=== PATIENT | male | born 1990 | race Caucasian/White ===

== ENCOUNTER 2021-12-15 17:57 | Emergency (ER) | payer BC, SELFPAY ==
[2021-12-15 18:05] VITALS: BP 160/99; PULSE 106; RESP 18; TEMP 36.6; O2SAT 98
--- NOTE | 2021-12-15 18:16 | ED.MALEGU ---
HPI - Male Genitourinary General Chief complaint: Urogenital-Male Stated complaint: uti Time Seen by Provider: 12/15/21 18:16 Source: patient Mode of arrival: ambulatory Limitations: no limitations History of Present Illness HPI Narrative: 31-year-old male with history of high blood pressure, depression presents with complaint of urinary frequency, fatigue, dry mouth, dizziness for the past week. Patient states at work he feels like he can fall asleep, feels tired all the time. Patient reports that he had lab orders for several months that he decided to go get at the beginning of December. Patient states his PCP called him and told him his blood sugar was elevated, and prescribed Metformin. Patient has been taking Metformin but was unaware that he was supposed to cut back on his carbohydrate and sugar intake. Did not really know what it meant to be diabetic. Patient had appointment with his PCP on Sunday but missed it due to work. All systems reviewed and negative except as noted above Related Data Home Medications Medication Instructions Recorded Confirmed clonazepam 12/15/21 divalproex PO 12/15/21 escitalopram oxalate mg 12/15/21 lisinopril 12/15/21 metformin mg PO 12/15/21 olanzapine mg 12/15/21 olanzapine mg 12/15/21 Allergies Allergy/AdvReac Type Severity Reaction Status Date / Time No Known Allergies Allergy Unknown Verified 12/15/21 18:22 Review of Systems Review of Systems: CONSTITUTIONAL: Denies fever, chills, or sweats. Reports fatigue. EYES: Denies visual changes, redness, or discharge. ENT: Denies rhinorrhea, congestion, sore throat, or otalgia. Reports dry mouth. CARDIOVASCULAR: Denies chest pain, palpitations, or edema. RESPIRATORY: Denies cough or dyspnea. GASTROINTESTINAL: Denies abdominal pain, nausea, vomiting, or diarrhea. GENITOURINARY: Denies dysuria or hematuria. Increased urination. SKIN: Denies rash or itching. MUSCULOSKELETAL: Denies back pain, joint pain, or myalgia. NEUROLOGIC: Denies headache, numbness, or weakness. Reports dizziness. PSYCHIATRIC: Denies anxiety or depression. All other systems reviewed are negative, except as documented in HPI. [facility] Comments At time of signature, agree with nursing past medical, surgical, social and family history. There is no relevant family history pertinent to the presenting complaint. Exam Narrative: GENERAL: This is a well-nourished, well-developed patient, in no apparent distress. HEAD: normocephalic, atraumatic. EYES: PERRL. Sclera clear/white. Vision is grossly intact. EARS: External ears normal, auditory canals clear and without drainage, TMs normal without perforation. Hearing grossly intact. NOSE: External nose normal with no obvious nasal discharge, nares without redness, no rhinorrhea. THROAT: Mucous membranes moist, posterior pharynx clear. NECK: Neck supple, non-tender without lymphadenopathy, masses or thyromegaly. CARDIOVASCULAR: Tachycardic and normal rhythm without murmurs, gallops, or rubs. RESPIRATORY: Clear to auscultation. Breath sounds equal bilaterally. No wheezes, rales, or rhonchi. GASTROINTESTINAL: Abdomen soft, non-tender, nondistended. Bowel sounds are active. No hepato-splenomegaly, or palpable masses. No guarding. SKIN: warm, Dry, intact with no suspicious lesions or rash, good texture and turgor. NEURO: awake, alert, and oriented to person, place and time. There were no obvious focal neurologic abnormalities. EXTREMITIES: No joint tenderness, effusion, or edema noted. No calf tenderness. Negative Homans sign bilaterally. BACK: Nontender without deformity. No CVA tenderness. Course Course Level of Care: Express Care Visit Vital Signs Vital signs: Vital Signs Temperature 36.6 C 12/15/21 18:05 Pulse Rate 106 H 12/15/21 18:05 Respiratory Rate 18 12/15/21 18:05 Blood Pressure 160/99 H 12/15/21 18:05 Pulse Oximetry 98 12/15/21 18:05 Temperature 36.6 C 12/15/21 18:05 Pulse Rate 106 H 0
[2021-12-15 18:35] LABS: Glucose Point of Care 496 mg/dl (65-105)
== END 2021-12-15 18:48 | disposition short-term general hospital (02) ==
PROVIDERS: Emergency Provider Nurse Practitioner Family; PCP Nurse Practitioner Family
DX: E11.65 Type 2 diabetes mellitus with hyperglycemia (principal); I10 Essential (primary) hypertension
CPT/HCPCS: 81003; 82948; 87086; 99203; G0463

== ENCOUNTER 2022-08-22 09:51 | Emergency (ER) | payer SELFPAY ==
[2022-08-22 10:00] VITALS: BP 191/146; PULSE 87; RESP 20; TEMP 36.7; O2SAT 98
--- NOTE | 2022-08-22 10:36 | ED.MALEGU ---
HPI - Male Genitourinary General Chief complaint: Urogenital-Male Stated complaint: Urinary Problem Time Seen by Provider: 08/22/22 10:36 Source: patient and RN notes reviewed Mode of arrival: ambulatory Limitations: no limitations History of Present Illness HPI Narrative: 32-year-old male with history of uncontrolled diabetes mellitus type 2 presents with concern for urine frequency, intermittent groin pain, dark urine for 2 days. He denies abdominal pain, back pain, fever, body aches, chills, sweats. Denies testicular redness, swelling, tenderness, penile discharge. Denies concern for STDs. Complaint: other (Urine frequency) Related Data Home Medications Medication Instructions Recorded Confirmed lisinopril 30 mg tablet 30 mg DAILY 12/15/21 08/22/22 Allergies Allergy/AdvReac Type Severity Reaction Status Date / Time No Known Allergies Allergy Unknown Verified 08/22/22 10:16 Review of Systems Review of Systems: CONSTITUTIONAL: Denies malaise, chills, sweats, or fever. CARDIOVASCULAR: Denies chest pain, palpitations, or edema. RESPIRATORY: Denies cough or dyspnea. GASTROINTESTINAL: Denies abdominal pain, nausea, vomiting, diarrhea GENITOURINARY: Reports frequency, groin discomfort, foul-smelling urine. Denies urgency, suprapubic pressure. Denies flank pain or hematuria. SKIN: Denies rash or itching. MUSCULOSKELETAL: Denies back pain or myalgia. All systems reviewed & are unremarkable except as noted in HPI and below PMF[facility] Comments At time of signature, agree with nursing past medical, surgical, social and family history. There is no relevant family history pertinent to the presenting complaint Exam Narrative: GENERAL: Well-appearing, well-nourished, and in no acute distress. HEAD: Normocephalic. EYES: PERRLA, conjunctivae clear. NECK: Supple. No lymphadenopathy CHEST: Clear to auscultation. No respiratory distress. HEART: Regular rate and rhythm. ABDOMEN: Soft, nontender upon palpation, nondistended, normal active bowel sounds, no palpable or pulsatile masses, no guarding. No CVA tenderness SKIN: Warm, dry, no rash. NEURO: Alert and oriented x3. PSYCH: Normal mood and affect Course Course Emergency Course: Advised patient importance of following up with his primary care provider regarding his blood sugar and taking his medications as prescribed. Patient is aware of diagnosis, understands and agrees to treatment plan. Anticipatory guidance given. Patient agrees to follow-up as directed and is aware of reasons to seek care at the emergency department. Portions of this record may have been created with voice recognition software Level of Care: Express Care Visit Vital Signs Vital signs: Vital Signs Temperature 98.0 F 08/22/22 10:00 Pulse Rate 87 08/22/22 10:00 Respiratory Rate 20 08/22/22 10:00 Blood Pressure 191/146 H 08/22/22 10:00 Pulse Oximetry 98 08/22/22 10:00 Oxygen Delivery Room Air 08/22/22 10:00 Temperature 98.0 F 08/22/22 10:00 Pulse Rate 87 08/22/22 10:00 Respiratory Rate 20 08/22/22 10:00 Blood Pressure 191/146 H 08/22/22 10:00 Pulse Oximetry 98 08/22/22 10:00 Oxygen Delivery Room Air 08/22/22 10:00 Reviewed. MDM - Male Genitourinary MDM Narrative Medical decision making narrative: Exam findings show no acute concerns or changes; patient is non-toxic appearing and is in no distress. Patient is appropriate for outpatient treatment and follow-up. Differential Diagnosis Differential diagnosis: Likely urinary tract infection, urethritis, epididymitis, prostatitis and other (Hyperglycemia) Lab Data Labs: Urine Glucose 2+ Reference Range: Negative Urine Bilirubin Negative Reference Range: Negative Urine Ketone Trace Reference Range: Negativ
[2022-08-22 10:49] LABS: Glucose Point of Care 236 mg/dl (65-105)
== END 2022-08-22 11:10 | disposition home or self-care (01) ==
PROVIDERS: Emergency Provider Nurse Practitioner; PCP Nurse Practitioner Family
DX: R35.0 Frequency of micturition (principal); E11.9 Type 2 diabetes mellitus without complications
CPT/HCPCS: 81003; 82948; 87086; 99213; G0463

== ENCOUNTER 2022-11-18 14:05 | Emergency (ER) | payer SELFPAY ==
[2022-11-18 14:14] VITALS: BP 144/88; PULSE 87; RESP 20; TEMP 36.4; O2SAT 98
--- NOTE | 2022-11-18 14:16 | ED.EYEPROB ---
HPI - Eye Problem General Chief complaint: Eye Problems Stated complaint: FB left eye Time Seen by Provider: 11/18/22 14:16 History of Present Illness HPI Narrative: patient was working with wood today and felt like a piece of wood went into his left eye. Patient states he irrigated his eye copiously at home but still feels as if there is something in his left eye. Related Data Home Medications Medication Instructions Recorded Confirmed lisinopril 30 mg tablet 30 mg DAILY 12/15/21 11/18/22 Allergies Allergy/AdvReac Type Severity Reaction Status Date / Time No Known Allergies Allergy Unknown Verified 11/18/22 14:31 Review of Systems Review of Systems: CONSTITUTIONAL: Denies fever, chills, or sweats. EYES: Denies visual changes, redness, or discharge. ENT: Denies rhinorrhea, congestion, sore throat, or otalgia. CARDIOVASCULAR: Denies chest pain, palpitations, or edema. RESPIRATORY: Denies cough or dyspnea. GASTROINTESTINAL: Denies abdominal pain, nausea, vomiting, or diarrhea. GENITOURINARY: Denies dysuria or hematuria. SKIN: Denies rash or itching. MUSCULOSKELETAL: Denies back pain, joint pain, or myalgia. NEUROLOGIC: Denies headache, numbness, or weakness. PSYCHIATRIC: Denies anxiety or depression. PMF[facility] Comments At time of signature, agree with nursing past medical, surgical, social and family history. There is no relevant family history pertinent to the presenting complaint Exam Narrative: GENERAL: Well-appearing, well-nourished, and in no acute distress. HEAD: Normocephalic, atraumatic. EYES: PERRLA and EOMI. Corneal abrasion to left eyeGENERAL: Well-appearing, well-nourished, and in no acute distress. HEAD: Normocephalic, atraumatic. EYES: PERRLA and EOMI. ENT: Nares clear, no rhinorrhea or epistaxis. Mucous membranes moist. NECK: Supple. CHEST: Clear to auscultation. No respiratory distress. HEART: Regular rate and rhythm. No murmur heard. Normal peripheral pulses. ABDOMEN: Soft, nontender, nondistended, normal active bowel sounds. EXTREMITIES: Normal range of motion. No edema. SKIN: Warm, dry, no rash. NEURO: No focal deficits. Alert and oriented x3. Nikhil Coma Scale Eye Opening: Spontaneous 4 Nikhil Coma Scale Motor: Obeys Commands 6 Nikhil Coma Scale Verbal: Oriented 5 Nikhil Coma Scale Total 15 ENT: Nares clear, no rhinorrhea or epistaxis. Mucous membranes moist. NECK: Supple. CHEST: Clear to auscultation. No respiratory distress. HEART: Regular rate and rhythm. No murmur heard. Normal peripheral pulses. ABDOMEN: Soft, nontender, nondistended, normal active bowel sounds. EXTREMITIES: Normal range of motion. No edema. SKIN: Warm, dry, no rash. NEURO: No focal deficits. Alert and oriented x3. [place] Coma Scale Eye Opening: Spontaneous 4 Nikhil Coma Scale Motor: Obeys Commands 6 Nikhil Coma Scale Verbal: Oriented 5 Nikhil Coma Scale Total 15 Eyes: Other: corneal abrasion to 6 oclock left eye Course Course Level of Care: Express Care Visit Vital Signs Vital signs: Vital Signs Temperature 36.4 C 11/18/22 14:14 Pulse Rate 87 11/18/22 14:14 Respiratory Rate 20 11/18/22 14:14 Blood Pressure 144/88 H 11/18/22 14:14 Pulse Oximetry 98 11/18/22 14:14 Oxygen Delivery Room Air 11/18/22 14:14 Temperature 36.4 C 11/18/22 14:14 Pulse Rate 87 11/18/22 14:14 Respiratory Rate 20 11/18/22 14:14 Blood Pressure 144/88 H 11/18/22 14:14 Pulse Oximetry 98 11/18/22 14:14 Oxygen Delivery Room Air 11/18/22 14:14 Procedures FB Removal Eye Foreign Body #1: Location: eye (L) Topical anesthetic used: tetracaine Patient tolerated procedure: well Foreign Body Removal Narrative: left eye numbed and then stained viewed under joshi lamp no foreign body noted corneal abrasion to left eye Discharge Plan Discharge Clinical Impression: Corneal abrasion Instructions: Corneal Abrasion (DC) Additional Instructions: Foll
== END 2022-11-18 14:34 | disposition home or self-care (01) ==
LOC: EXPBETH 14:07
PROVIDERS: Emergency Provider Nurse Practitioner Family; PCP Nurse Practitioner Family
DX: S05.02XA Injury of conjunctiva and corneal abrasion without foreign body, left eye, initial encounter (principal); X58.XXXA Exposure to other specified factors, initial encounter; I10 Essential (primary) hypertension
CPT/HCPCS: 99213; A9270; G0463

== ENCOUNTER 2023-08-08 18:31 | Emergency (ER) | payer OTHER, SELFPAY ==
[2023-08-08 18:37] VITALS: BP 149/100; PULSE 94; RESP 20; TEMP 35.8; O2SAT 98
[2023-08-08 18:54] LABS: Glucose Point of Care 134 mg/dl (65-105)
--- NOTE | 2023-08-08 19:11 | ED.NAVMDI ---
HPI - Nausea/Vomiting/Diarrhea General Chief complaint: Nausea/Vomiting/Diarrhea Stated complaint: Fever/Vomiting/Diarrhea Time Seen by Provider: 08/08/23 18:56 Source: patient and RN notes reviewed Mode of arrival: ambulatory Limitations: no limitations History of Present Illness HPI Narrative: Patient presents today complaining of a 2 day history of nausea, vomiting, diarrhea, sweats, fever, congestion and rhinorrhea. States the fever resolved yesterday. Reports 2-3 episodes of vomiting per day. He is able to keep down fluids in between vomiting episodes, but is not able to keep down food. Reports 6 episodes of diarrhea per day and reports that it is water. Denies blood or mucus in the stool. Denies abdominal pain. He has tried Tylenol and various [id number] medications for his diarrhea without relief. Patient continues to put on normal urine. He is diabetic, and has not been checking his blood sugars. Related Data Home Medications Medication Instructions Recorded Confirmed empagliflozin 25 mg tablet 25 mg PO DAILY 08/08/23 08/08/23 (Jardiance) lisinopril 5 mg tablet 5 mg PO DAILY 08/08/23 08/08/23 Allergies Allergy/AdvReac Type Severity Reaction Status Date / Time No Known Allergies Allergy Unknown Verified 08/08/23 19:07 Review of Systems Review of Systems: CONSTITUTIONAL: Denies body aches, chills.+ fever, sweats EYES: Denies visual changes, redness, or discharge. ENT: Denies sore throat, or otalgia.+ congestion, rhinorrhea CARDIOVASCULAR: Denies chest pain, palpitations, or edema. RESPIRATORY: Denies cough or dyspnea. GASTROINTESTINAL: Denies abdominal pain.+ nausea, vomiting, diarrhea GENITOURINARY: Denies dysuria or hematuria. SKIN: Denies rash, itching, or wounds. MUSCULOSKELETAL: Denies back pain, joint pain, or myalgia. NEUROLOGIC: Denies headache, numbness, tingling, or weakness. PSYCH: Denies depression or anxiety. [facility] Comments At time of signature, I have reviewed and agree with nursing past medical, surgical, social and family history unless otherwise noted. Please see nursing chart for further information. There is no relevant family history pertinent to the presenting complaint Exam Narrative: GENERAL: Well-appearing, well-nourished, and in no acute distress. HEAD: Normocephalic, atraumatic. EYES: EOMI. No redness or drainage. Conjunctivae normal. ENT: Mucous membranes pink and moist. Nares clear. No rhinorrhea. TMs normal bilaterally. Throat normal. Uvula midline. NECK: Normal AROM. Supple. No lymphadenopathy. CHEST: No respiratory distress. Clear to auscultation. HEART: Regular rate and rhythm. No murmur appreciated. Normal peripheral pulses. ABDOMEN: Soft, nontender, nondistended, normal active bowel sounds. EXTREMITIES: Normal range of motion. No edema. SKIN: Warm, dry, no rash. Capillary refill normal. Normal skin turgor. NEURO: No focal deficits. Alert and oriented x3. Gait steady. PSYCH: Normal affect. No signs of depression or anxiety. Course Course Level of Care: Express Care Visit Vital Signs Vital signs: Vital Signs Temperature 96.4 F L 08/08/23 18:37 Pulse Rate 94 08/08/23 18:37 Respiratory Rate 20 08/08/23 18:37 Blood Pressure 149/100 H 08/08/23 18:37 Pulse Oximetry 98 08/08/23 18:37 Oxygen Delivery Room Air 08/08/23 18:37 Temperature 96.4 F L 08/08/23 18:37 Pulse Rate 94 08/08/23 18:37 Respiratory Rate 20 08/08/23 18:37 Blood Pressure 149/100 H 08/08/23 18:37 Pulse Oximetry 98 08/08/23 18:37 Oxygen Delivery Room Air 08/08/23 18:37 Reviewed MDM - Nausea/Vomiting/Diarrhea MDM Narrative Medical decision making narrative: Zofran given for nausea. Patient reports feeling slightly better after Zofran. Requests anti diarrheal prescription. Prescriptions for Zofran and Lomotil sent to pharmacy. Discussed follow-up with PCP. Anticipatory guidance given. Differential Diagnosis Differential dee
[2023-08-08] MEDS: ONDANSETRON HCL ODT 4 MG TABLET 8 MG SUBLINGUAL (19:12)
== END 2023-08-08 19:50 | disposition home or self-care (01) ==
PROVIDERS: Emergency Provider Nurse Practitioner; PCP Nurse Practitioner Family
DX: R11.2 Nausea with vomiting, unspecified (principal); R19.7 Diarrhea, unspecified
CPT/HCPCS: 82948; 87081; 87880; 99213; A9270; G0463

== ENCOUNTER 2023-08-11 18:42 | Emergency (ER) | payer OTHER, SELFPAY ==
[2023-08-11 18:57] VITALS: BP 167/106; PULSE 93; RESP 16; TEMP 36.6; O2SAT 97
--- NOTE | 2023-08-11 18:58 | ED.URI ---
HPI - URI/Sore Throat General Chief Complaint: Upper Respiratory Infection Stated Complaint: Congestion, Sore Throat, Eye Drainage History of Present Illness HPI Narrative: PATIENT PRESENTS WITH NASAL CONGESTION COUGH AND LEFT EYE MATTED SHUT THIS MORNING. PATIENT WAS TREATED 4 DAYS AGO WITH NAUSEA VOMITING DIARRHEA WHICH SYMPTOMS HAVE MUCH IMPROVED AND HE RETURNS TODAY WITH EYE PROBLEM AND A COUGH. NO SHORTNESS OF BREATH AND NO CHEST PAIN Related Data Home Medications Medication Instructions Recorded Confirmed empagliflozin 25 mg tablet 25 mg PO DAILY 08/08/23 08/08/23 (Jardiance) lisinopril 5 mg tablet 5 mg PO DAILY 08/08/23 08/08/23 Allergies Allergy/AdvReac Type Severity Reaction Status Date / Time No Known Allergies Allergy Unknown Verified 08/08/23 19:07 Review of Systems Review of Systems: CONSTITUTIONAL: DENIES CHILLS, OR SWEATS. REPORTS FEVER AND GENERALIZED BODY ACHES EYES: DENIES VISUAL CHANGES, REDNESS, OR DISCHARGE. ENT: DENIES OTALGIA. REPORTS NASAL CONGESTION RUNNY NOSE AND SORE THROAT CARDIOVASCULAR: DENIES CHEST PAIN, PALPITATIONS, OR EDEMA. RESPIRATORY: DENIES DYSPNEA. REPORTS OCCASIONAL COUGH GASTROINTESTINAL: DENIES ABDOMINAL PAIN, NAUSEA, VOMITING, OR DIARRHEA. GENITOURINARY: DENIES DYSURIA OR HEMATURIA. SKIN: DENIES RASH OR ITCHING. MUSCULOSKELETAL: DENIES BACK PAIN, JOINT PAIN, OR MYALGIA. REPORTS GENERALIZED BODY ACHES NEUROLOGIC: DENIES HEADACHE, NUMBNESS, OR WEAKNESS. PSYCHIATRIC: DENIES ANXIETY OR DEPRESSION. [facility] Comments AT TIME OF SIGNATURE, AGREE WITH NURSING PAST MEDICAL, SURGICAL, SOCIAL AND FAMILY HISTORY. THERE IS NO RELEVANT FAMILY HISTORY PERTINENT TO THE PRESENTING COMPLAINT Exam Narrative: THE PATIENT IS A WELL-DEVELOPED, WELL-NOURISHED IN NO ACUTE DISTRESS. SKIN: SKIN IS WARM AND DRY WITHOUT ERYTHEMA, SWELLING OR EXUDATE. THERE IS GOOD TURGOR. NO TENTING. HEAD: ATRAUMATIC. NORMOCEPHALIC. NO TEMPORAL OR SCALP TENDERNESS. EYES: MOIST AND BRIGHT. SCLERA AND CONJUNCTIVAE NORMAL. NO DISCHARGE. PERRLA. EXTRAOCULAR MOTIONS INTACT. GROSS VISUAL ACUITY INTACT. EARS: PINNA IS NORMAL SHAPE AND CONTOUR. CLEAR EXTERNAL AUDITORY CANALS. TM PEARLY HERNANDES WITH GOOD CONE OF LIGHT, NO ERYTHEMA OR SUPPURATION. BILATERAL CERUMEN NOTED NO GROSS HEARING DEFICIT. NOSE: PINK, MOIST MUCOSA WITH GOOD AIR MOVEMENT. CLEAR RHINORRHEA WITHOUT NASAL FLARING. SEPTUM MIDLINE. MOUTH: MOIST MUCOUS MEMBRANES. THROAT; MILD ERYTHEMA NOTED TO POSTERIOR OROPHARYNX WITH MODERATE POSTNASAL DRAINAGE. WITHOUT EXUDATE OR ULCERATION.. UVULA MIDLINE. NORMAL MOVEMENT OF SOFT PALATE. NECK: SUPPLE AND NONTENDER WITH FULL RANGE OF MOTION WITHOUT DISCOMFORT. NO MENINGEAL SIGNS. LUNGS: EQUAL AND BILATERAL BREATH SOUNDS WITHOUT WHEEZES, RALES OR RHONCHI. CHEST: THE CHEST WALL IS WITHOUT RETRACTIONS OR USE OF ACCESSORY MUSCLES. HEART: HAS A REGULAR RATE AND RHYTHM WITHOUT MURMUR, GALLOPS, CLICK OR RUB. ABDOMEN: SOFT, NONTENDER WITH POSITIVE ACTIVE BOWEL SOUNDS. NO REBOUND TENDERNESS. EXTREMITIES: WITHOUT CYANOSIS, CLUBBING OR EDEMA. EQUAL 2+ DISTAL PULSES AND 2 SECOND CAPILLARY REFILL NOTED. NEUROLOGIC: ALERT, ACTIVE, . THE PATIENT MOVES ALL EXTREMITIES WITH NORMAL MUSCLE STRENGTH. NORMAL MUSCLE TONE IS NOTED. NORMAL COORDINATION IS NOTED. NO FOCAL NEUROLOGICAL FINDINGS NOTED. Eyes: Conjunctivae: conjunctival abnormality left conjunctival injection Course Course Level of Care: Express Care Visit Discharge Plan Discharge Clinical Impression: Upper respiratory infection, [place] eye Patient Disposition: Home, Self-Care Condition: Stable Instructions: Antibiotic Form Additional Instructions: CONJUNCTIVITIS IS SPREAD BY [id number] CONTACT OR BY TOUCHING A CONTAMINATED SURFACE. YOU CAN USE ARTIFICIAL TEARS, COLD AND WARM COMPRESSES-USE, DIFFERENT COMPRESS FOR EACH EYE, AND INCREASE HYGIENE SUCH HAND-WASHING. DO NOT WEAR CONTACTS FOR 1 WEEK, IF APPLICABLE. DO NOT RETURN FOR 24 HOURS TO DAYCARE, SCHOOL, W
== END 2023-08-11 19:11 | disposition home or self-care (01) ==
PROVIDERS: Emergency Provider Nurse Practitioner Family
DX: J06.9 Acute upper respiratory infection, unspecified (principal); H10.022 Other mucopurulent conjunctivitis, left eye; I10 Essential (primary) hypertension
CPT/HCPCS: 99213; G0463

== ENCOUNTER 2023-08-13 08:39 | Emergency (ER) | payer OTHER, SELFPAY ==
[2023-08-13 08:46] VITALS: BP 147/95; PULSE 86; RESP 20; TEMP 37.1; O2SAT 96
--- NOTE | 2023-08-13 09:12 | ED.URI ---
HPI - URI/Sore Throat General Chief Complaint: Upper Respiratory Infection Stated Complaint: needs to be seen for work Time Seen by Provider: 08/13/23 09:13 Source: patient and RN notes reviewed Mode of arrival: ambulatory Limitations: no limitations History of Present Illness HPI Narrative: 33-year-old male presented for complaint of sore throat, headache, body aches, sinus pressure/congestion, right ear pain, n/v/d, fever/chills. States the vomiting and diarrhea is improving. Patient also reports the redness to the right eyes, for which he was seen 2 days ago, is worsening. Has been taking Ofloxacin drops as directed. Denies sob, wheezing or lethargy. Not taking anything else for symptoms. Denies sick contacts. MD elicited complaint: cough Related Data Home Medications Medication Instructions Recorded Confirmed empagliflozin 25 mg tablet 25 mg PO DAILY 08/08/23 08/13/23 (Jardiance) lisinopril 5 mg tablet 5 mg PO DAILY 08/08/23 08/13/23 Allergies Allergy/AdvReac Type Severity Reaction Status Date / Time No Known Allergies Allergy Unknown Verified 08/13/23 09:30 Review of Systems Review of Systems: CONSTITUTIONAL: Endorses malaise, chills, sweats, fever EYES: Denies visual changes, Endorses redness, or discharge ENT: Reports rhinorrhea, congestion, sinus pain, otalgia, sore throat CARDIOVASCULAR: Denies chest pain, palpitations, edema RESPIRATORY: Reports cough, post nasal drainage. Denies dyspnea GASTROINTESTINAL: Denies abdominal pain, Reports nausea, vomiting, diarrhea SKIN: Denies rash or itching MUSCULOSKELETAL: Endorses myalgia NEUROLOGIC: Endorses headache PMF Past Medical History Medical History (Updated 08/13/23 @ 09:59 by Sofi Morales APRN) No pertinent past medical history Exam Narrative: GENERAL: mildly Ill-appearing, nontoxic no acute distress. HEAD: Normocephalic EYES: PERRLA, EOMI. bilateral conjunctival injection, left worse than right, mild purulent drainage. Mild periorbital erythema Left worse than right. No FB. ENT: Mucous membranes moist. Left TM pearly giles with dull light reflex bilaterally; Right TM erythematous, bulging and intact, purulent effusion; canal not erythematous. No drainage; no tragal tenderness. Oropharynx erythematous without lesions or exudate, no drooling, no hoarseness, no trismus, uvula midline. No tripod positioning, muffled voice, soft palate or pharyngeal wall bulging NECK: Supple. No lymphadenopathy CHEST: Clear to auscultation, breath sounds equal. No wheezing, rhonchi, rales, or stridor. No respiratory distress, speaks in full sentences. HEART: Regular rate and rhythm. No murmur heard. SKIN: Warm, dry, no rash. NEURO: Alert and oriented x3. PSYCH: Normal mood and affect Course Course Emergency Course: Patient is aware of diagnosis, understands and agrees to treatment plan. Anticipatory guidance given. Patient agrees to follow-up as directed and is aware of reasons to seek care at the emergency department. Portions of this record may have been created with voice recognition software Level of Care: Express Care Visit Vital Signs Vital signs: Vital Signs Temperature 98.7 F 08/13/23 08:46 Pulse Rate 86 08/13/23 08:46 Respiratory Rate 20 08/13/23 08:46 Blood Pressure 147/95 H 08/13/23 08:46 Pulse Oximetry 96 08/13/23 08:46 Oxygen Delivery Room Air 08/13/23 08:46 Temperature 98.7 F 08/13/23 08:46 Pulse Rate 86 08/13/23 08:46 Respiratory Rate 20 08/13/23 08:46 Blood Pressure 147/95 H 08/13/23 08:46 Pulse Oximetry 96 08/13/23 08:46 Oxygen Delivery Room Air 08/13/23 08:46 reviewed MDM - URI/Sore Throat MDM Narrative Medical decision making narrative: Results of negative COVID, flu, strep reviewed with patient. Right AOM. Will change antibiotic eyedrop as pt reports symptoms are worsening Discussed physical exam findings and Rx's. Advised supportive measures and signs/symptoms to stanislaw
== END 2023-08-13 10:09 | disposition home or self-care (01) ==
PROVIDERS: Emergency Provider Nurse Practitioner Family; PCP Nurse Practitioner Family
DX: H66.91 Otitis media, unspecified, right ear (principal); H10.9 Unspecified conjunctivitis; Z20.822 Contact with and (suspected) exposure to COVID-19
CPT/HCPCS: 87081; 87426; 87804; 87880; 99213; C9803; G0463

== ENCOUNTER 2024-02-12 12:58 | Emergency (ER) | payer OTHER, SELFPAY ==
[2024-02-12 13:04] VITALS: BP 171/101; PULSE 96; RESP 16; TEMP 37.1; O2SAT 98
[2024-02-12 13:16] LABS: Glucose Point of Care 181 mg/dl (65-105)
[2024-02-12] MEDS: FAMOTIDINE 20 MG TABLET PO (13:26)
[2024-02-12] MEDS: ONDANSETRON HCL ODT 4 MG TABLET PO (13:26)
--- NOTE | 2024-02-12 13:39 | ED.GENADULT ---
HPI - General Adult General Chief complaint: Nausea/Vomiting/Diarrhea Stated complaint: Vomiting and Diarrhea Source: patient Mode of arrival: ambulatory Limitations: no limitations History of Present Illness HPI narrative: Patient presents for evaluation of nausea, vomiting, diarrhea. Symptom onset around midnight last night. He has also experienced hot flashes, headache, generalized body aches and chills. He reports a rumbling in the stomach yesterday preceding the other symptoms. He denies any abdominal pain per se. No recent sick contacts to his knowledge. No new foods. No recent alcohol intake. He has not taken any medication to assist with the symptoms. Denies any cough, otalgia or other infectious symptoms. He is currently prescribed metformin for diabetes and lisinopril for his blood pressure. Blood pressure is elevated today but denies any chest pain or shortness of breath. He ran out of metformin about a week ago. His is currently in wrote to pick it up from the pharmacy. Related Data Home Medications Medication Instructions Recorded Confirmed empagliflozin 25 mg tablet 25 mg PO DAILY 08/08/23 02/12/24 (Jardiance) lisinopril 5 mg tablet 5 mg PO DAILY 08/08/23 02/12/24 Allergies Allergy/AdvReac Type Severity Reaction Status Date / Time No Known Allergies Allergy Unknown Verified 02/12/24 13:19 Review of Systems Review of Systems: CONSTITUTIONAL: Reports hot flashes and chills EYES: Denies visual changes, redness, or discharge. ENT: Denies rhinorrhea, congestion, sore throat, or otalgia. CARDIOVASCULAR: Denies chest pain, palpitations, or edema. RESPIRATORY: Denies cough or dyspnea. GASTROINTESTINAL: Reports nausea, vomiting and diarrhea. Denies abdominal pain GENITOURINARY: Denies dysuria or hematuria. SKIN: Denies rash or itching. MUSCULOSKELETAL: Reports generalized body aches NEUROLOGIC: Denies headache, numbness, dizziness, or weakness. PSYCHIATRIC: Denies anxiety or depression. [facility] Past Medical History Medical History Diabetes Diarrhea Hypertension No pertinent past medical history Surgical History Surgical History No pertinent past surgical history Family History Family History (Updated 02/12/24 @ 14:04 by Karl White, AMMONIA BOX OPERATOR, ) Mother Family history non-contributory Social History Social History Living arrangements: with family Gender identity (if verbalized by the patient): Male Exam Narrative: GENERAL: Well-appearing, well-nourished, and in no acute distress. HEAD: Normocephalic, atraumatic. EYES: PERRLA and EOMI. ENT: Nares clear, no rhinorrhea or epistaxis. Mucous membranes moist. Oropharynx without tonsillar hypertrophy exudate or other lesions. Bilateral TMs pearly giles nonbulging NECK: Supple. No adenopathy or masses. No carotid bruits or JVD CHEST: Clear to auscultation. No respiratory distress. No wheezes rales or rhonchi HEART: Regular rate and rhythm. No murmur heard. Normal peripheral pulses. ABDOMEN: Soft, nontender, nondistended, normal active bowel sounds. EXTREMITIES: Normal range of motion. No edema. SKIN: Warm, dry, no rash. NEURO: No focal deficits. Alert and oriented x3. PSYCH: Normal mood and affect. Course Course Emergency Course: This is a 34-year-old male who presented for evaluation nausea, vomiting, diarrhea. He has no abdominal tenderness to suggest colitis or bowel obstruction. His COVID and influenza were negative. His exam is consistent with acute viral syndrome. Will discharge with Zofran and Lomotil. He was given Zofran and Pepcid while here. He should follow-up with his primary provider. He should restart his metformin. Go to the emergency department for worsening symptoms. Patient in agreement with plan care. Level
== END 2024-02-12 14:01 | disposition home or self-care (01) ==
PROVIDERS: Emergency Provider Nurse Practitioner; PCP Nurse Practitioner Family
DX: R11.2 Nausea with vomiting, unspecified (principal); R19.7 Diarrhea, unspecified; E11.9 Type 2 diabetes mellitus without complications; I10 Essential (primary) hypertension; Z20.822 Contact with and (suspected) exposure to COVID-19
CPT/HCPCS: 82948; 87426; 87804; 99213; A9270; G0463

== ENCOUNTER 2024-03-18 16:35 | Emergency (ER) | payer OTHER, SELFPAY ==
[2024-03-18 16:44] VITALS: BP 150/108; PULSE 94; RESP 20; TEMP 37.2; O2SAT 100
--- NOTE | 2024-03-18 17:03 | ED.URI ---
HPI - URI/Sore Throat General Chief Complaint: Upper Respiratory Infection Stated Complaint: nausea/fever/exposure to covid Time Seen by Provider: 03/18/24 17:03 Source: patient, RN notes reviewed and old records reviewed Mode of arrival: ambulatory Limitations: no limitations History of Present Illness HPI Narrative: 34-year-old male to [facility] for complaint body aches, diarrhea, nasal congestion, nasal drainage increased swelling for 2 days. Patient endorses recent COVID exposure. Patient denies fever, nausea, vomiting, urinary changes, ear pain, sore throat, allergies, pertinent medical history, shortness of breath, chest pain. Respirations even and nonlabored. Patient able to speak in full sentences without difficulty. Patient able to tolerate fluids by mouth. Patient in no acute distress. Related Data Home Medications Medication Instructions Recorded Confirmed empagliflozin 25 mg tablet 25 mg PO DAILY 08/08/23 03/18/24 (Jardiance) lisinopril 5 mg tablet 5 mg PO DAILY 08/08/23 03/18/24 meloxicam 7.5 mg tablet 7.5 mg PO DAILY 03/18/24 03/18/24 Allergies Allergy/AdvReac Type Severity Reaction Status Date / Time No Known Allergies Allergy Unknown Verified 03/18/24 17:15 Review of Systems Review of Systems: All systems reviewed & are unremarkable except as noted in HPI and below Constitutional: Constitutional: Reports as per HPI, Reports body ache(s), Reports chills and Reports excessive sweating Eyes: Eyes: Reports no additional eye complaints ENT: Reports as per HPI, Reports nasal congestion and Reports nasal discharge Cardiovascular: Cardiovascular: Reports no additional cardiovascular complaints, Denies chest pain and Denies dyspnea Respiratory: Respiratory: Reports no additional respiratory complaints, Denies cough and Denies dyspnea Gastrointestinal: Gastrointestinal: Reports diarrhea Musculoskeletal: Musculoskeletal: Reports no additional musculoskeletal complaints Neurologic: Reports system reviewed and no additional complaints, except as documented Psychiatric: Psychiatric: Reports no additional psychiatric complaints PMF Past Medical History Medical History Diabetes Diarrhea Hypertension No pertinent past medical history Surgical History Surgical History No pertinent past surgical history Family History Family History Mother Family history non-contributory Social History Social History Living arrangements: with family Gender identity (if verbalized by the patient): Male Comments At the time of my signature, I reviewed and agree with the nursing past medical, surgical, social, and family history. There is no relevant family history pertinent to the patient complaint. Exam Const: General: cooperative, no acute distress, alert, ill appearing acutely, tired appearing, uncomfortable and well nourished Nutritional Appearance: well nourished Orientation/consciousness: patient oriented x3 Limitations: no limitations HENMT: Head: normal to inspection Ears: external ears normal Face/Nose/Sinus: Normal external nose present, Abnormal mucous membranes and turbinates present boggy and erythematous, normal facial exam, No erythema and No edema Face and sinus: normal facial exam, no erythema and no edema Mouth: Yes Normal oral and palatal mucosa present Throat: postnasal drainage Eyes: General: appearance normal, both eyes and all related structures Neck: Neck: normal visual inspection, full ROM and no meningeal signs Lymphatic: no lymphadenopathy noted and no lymphedema noted Chest: Chest palpation & inspection: normal inspection of the chest Resp: Effort & Inspection: normal respiratory effort and able to speak in complete sentenc
== END 2024-03-18 17:45 | disposition home or self-care (01) ==
PROVIDERS: Emergency Provider Nurse Practitioner Family; PCP Nurse Practitioner Family
DX: B34.9 Viral infection, unspecified (principal); Z20.822 Contact with and (suspected) exposure to COVID-19; E11.9 Type 2 diabetes mellitus without complications; Z79.84 Long term (current) use of oral hypoglycemic drugs; I10 Essential (primary) hypertension
CPT/HCPCS: 87081; 87426; 87804; 87880; 99213; G0463

== ENCOUNTER 2024-12-12 09:08 | Emergency (ER) | payer OTHER, SELFPAY ==
[2024-12-12 09:16] VITALS: BP 154/103; PULSE 122; RESP 16; TEMP 36.3; O2SAT 98
--- OUTSIDE RECORDS SUMMARY | 2024-12-12 09:31 | XMS_ITS | Clinical Summary ---
Author Organization [facility] Address [address] [place] [address] Phone Care Team Providers Care Hydrometallurgical Engineer Name Role Phone LoeraJessica APRN, [employer] DERRICKMAN [employer] RIGGER Primary Care Provider Marleen Reed APRN, FLOOR INSTALLATION MECHANIC Unavailable [phone] Allergies Active Allergy Reactions Criticality Noted Date Comments Metformin Other (see Comments) Medium 03/28/2023 Feet cramps Medications Blood Glucose Monitoring Suppl Device Diagnosis: Diabetes type 2 Blood testing frequency: 3 times a day 1 Each 4 Active Lancets Misc Use as directed 200 Lancet . 2 4 Active Glucose Blood Strip Diagnosis: Diabetes type 2 Blood testing frequency: 3 times a day 200 Strip 2 4 Active lamoTRIgine (LaMICtal) 25 MG Tablet Take 25 mg by mouth daily. Active insulin glargine (LANTUS, BASAGLAR) 100 UNIT/ML Solution Pen-injector 10 Units by Subcutaneous route. 4 01/21/20 25 Active Active Problems Problem Noted Date Diagnosed Date Vision changes 05/26/2024 Uncontrolled type 2 DM with hyperosmolar nonketotic hyperglycemia 05/26/2024 Obesity (BMI 30-39.9) 05/26/2024 Polycythemia 05/26/2024 HTN (hypertension) 05/26/2024 HLD (hyperlipidemia) 05/26/2024 Resolved Problems Problem Noted Date Diagnosed Date Resolved Date CVA (cerebral vascular accident) 05/26/2024 05/27/2024 Encounters Date Type Department Care Team Description 10/03/2024 Documentation Only [facility] [address] [place] [address] Helena Marques OT from Last 3 Months Family History Medical History Relation Name Comments Diabetes Father Heart Attack Father Hypertension Father Stroke Father Crohn's Disease Mother Relation Name Status Comments Father Alive Mother Alive Social History Tobacco Use Types Packs/Day Years Used Date Smoking Tobacco: Never Passive Smoke Exposure: Never Smokeless Tobacco: Never Tobacco Cessation:Counseling Given: Not Answered Alcohol Use Standard Drinks/Week Comments Not Currently 0 (1 standard drink = 0.6 oz pur e alcohol) [facility] Utilities Answer Date Recorded In the past 12 months has th e electric, gas, oil, or water company threatened to shut off services in your home? No 05/26/2024 Hunger Vital Sign Answer Date Recorded Within the past 12 months, y ou worried that your food would run out before you got the money to buy more. Never true 05/26/20 24 Within the past 12 months, t he food you bought just didn't last and you didn't have money to get more. Never true 05/26/2024 PRAPARE - Transportation Answer Date Re corded In the past 12 months, has l ack of transportation kept you from medical appointments or from getting medications? No 05/08 In the past 12 months, has l ack of transportation kept you from meetings, work, or from getting things needed for daily living? No 05/26/2024 Housing Stability Vital Sign Answer Dennis e Recorded In the last 12 months, was t here a time when you were not able to pay the mortgage or rent on time? No 05/26/2024 In the past 12 months, how m any times have you moved where you were living? 1 05/26/2024 At any time in the past 12 m [facility], were you homeless or living in a halfway (including now)? No 05/26/2024 Sex and Gender Information Value Date Recorded Sex Assigned at Not on file Legal Sex Male 8:02 PM CDT Gender Identity Not on file Sexual Orientation Not on file Last Filed Vital Signs Vital Sign Reading Time Taken Comments Blood Pressure 144/96 07/29/2024 9:00 AM CDT Pulse 87 07/29/2024 9:00 AM CDT Temperature 36.3 C (97.4 F) 07/29/2024 9:00 AM CDT Respiratory Rate 17 07/29/2024 9:00 AM CDT Oxygen Saturation 98% 07/29/2024 9:00 AM CDT Inhaled Oxygen Concentration - - Weight 111.3 kg (245 lb 6.4 oz) 07/29/2024 9:00 AM CDT Height 172.7 cm (5' 8 ) 07/29/2024 9:00 AM CDT Body Mass Index 37.31 07/29/2024 9:00 AM CDT Plan of Treatment Health Maintenance Due Date Last Done Comments Diabetes: Eye Exam 1989 Diabetes: Foot Exam 1989 Hepatitis C Virus (HCV) Screening 1989 Hepatitis B Immunization (1 of 3 - 19+ 3-dose series) 01/21/2008 Pneumococcal Immunization Combined (1 of 2 - PCV) 01/21/2008 Influenza Immunization (#1) 06/08/202412/06, 07/18/2019 SARS-COV-2 Immunization ( season) 2024 Diabetes: Hemoglobin A1c 11/26/2024 024, 07/10/2023 Diabetes: Nephropathy Screening 05/27/2025 05/27/2024, 09/18/2023, 03/06/2023 Respiratory Syncytial Virus (RSV) Immunization (Adult) (1 - 1-dose 75+ series) 01/21/2064 DTaP/Tdap/Td Immunization Discontinued 01/06/2021 TdaP Immunization Completed 01/06/2021 Meningococcal Immunization (ACWY) Aged Out No longer eligible based on patient's age to complete this topic Rotavirus Immunization Aged Out No lo nger eligible based on patient's age to complete this topic Procedures Procedure Name Priority Date/Time Associated Diagnosis Comments CMP (COMPREHENSIVE METABOLIC PANEL) Routine 05/27/2024 4:07 AM CDT HEMOGLOBIN A1C W/ ESTIMATED GLUCOSE Routine 05/26/2024 9:20 AM CDT from Last 3 Months or Most Recently Relevant to Health Maintenance Results * (ABNORMAL) CMP (Comprehensive Metabolic Panel) (05/27/2024 4:07 AM CDT) SODIUM 136 136 - 145 mmol/L 05/27/2024 5:08 AM CDT [facility] POTASSIUM 3.6 3.5 - 5.1 mmol/L 05/27/2024 5:08 AM CDT [facility] CHLORIDE 102 98 - 107 mmol/L 05/27/2024 5:08 AM CDT [facility] CO2, VENOUS 24 22 - 30 mmol/L 05/27/2024 5:08 AM CDT [facility] ANION GAP 13.6 <18.0 mmol/L 05/27/2024 5:08 AM CDT [facility] GLUCOSE 258(H) 70 - 99 mg/dL 05/27/2024 5:08 AM CDT [facility] BUN 18 9 - 21 mg/dL 05/27/2024 5:08 AM CDT [facility] CREATININE, BLOOD 0.86 0.70 - 1.30 mg/dL 05/27/2024 5:08 AM CDT [facility] BUN/CREATININE RATIO 21(H) 12 - 20 ratio 05/27/2024 5:08 AM CDT [facility] TOTAL PROTEIN 6.7 6.3 - 8.2 g/dL 05/27/2024 5:08 AM CDT [facility] ALBUMIN 4.3 3.5 - 5.0 g/dL 05/27/2024 5:08 AM CDT [facility] A/G RATIO 1.8 1.0 - 2.2 05/27/2024 5:08 AM CDT [facility] CALCIUM 9.4 8.7 - 10.5 mg/dL 05/27/2024 5:08 AM CDT [facility] T BILI 1.0 0.2 - 1.2 mg/dL 05/27/2024 5:08 AM CDT [facility] SGOT (AST) 28 5 - 34 U/L 05/27/2024 5:08 AM CDT [facility] SGPT (ALT) 65(H) 0 - 55 U/L 05/27/2024 5:08 AM CDT [facility] ALKALINE PHOSPHATASE 78 40 - 150 U/L 05/27/2024 5:08 AM CDT [facility] GFR, ESTIMATED >60 >=60 05/27/2024 5:08 AM CDT [facility] Comment: Creatinine Clearance is the preferred criteria for selecting drug dose adjustments in renally impaired patients. The GFR is provided as additional pertinent clinical information. GFR is reported in mL/min/1.73 sq m. Calculation based on the Chronic Kidney Disease Epidemiology Collaboration (CKD- EPI) equation refit without adjustment for race. GFR, EST. >60 >=60 024 5:08 AM CDT [facility] GFR, EST. NONAFRICAN >60 >=60 05/27/2024 5:08 AM CDT [facility] Blood Venipuncture / Unknown 05/27/2024 4:07 AM CDT 05/27/2024 4:42 AM CDT us Merlyn Leo APRN, TAMARA CHEMISTRY ORDERABLES Final Result [facility] [address] [place] [address] * (ABNORMAL) Hemoglobin A1C w/ Estimated Glucose (05/26/2024 9:20 AM CDT) HGB-A1C 10.2(H) 4.0 - 6.0 % 05/26/2024 1:30 PM CDT [facility] Est Average Glucose 246.0 mg/dL 05/26/2024 1:30 PM CDT [facility] Blood Venipuncture / Unknown 05/26/2024 9:20 AM CDT 05/26/2024 9:39 AM CDT Narrative 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 PRE-ARREST: Use entire range of life support measures to stabilize the patient. Care Teams Hydrometallurgical Engineer Relationship Specialty Start Date End Date Jessica Loera APRN, [employer] RIGGER [address] [place] [address] [place] [id number] PCP - General Advanced Practice Nurse 09/18/23 Marleen Reed APRN, FLOOR INSTALLATION MECHANIC [address] [place] [address] Nurse Practitioner Advanced Practice Nurse 06/04/24
--- OUTSIDE RECORDS SUMMARY | 2024-12-12 09:31 | XMS_ITS | CONTINUITY OF CARE DOCUMENT ---
Author Name emily diaz Address Unknown Organization [facility] Address [address] [place] [address] Phone [phone] Care Team Providers Care Washing Machine Assembler Name Role Phone Bianca Thmoas MD Unavailable [phone] SAMIR HERNANDEZ MD Unavailable SAMIR HERNANDEZ MD Unavailable [phone] PROBLEMS Condition Status Date Provider Notes Family History of Hypertension: active ? Amparo Thomas MD Family History Coronary Hear t Disease male < 55: active ? Bianca Thomas MD Family History of CVA or Stroke: active ? Tomas Thomas MD Family History of Hyperlipidemia: active ? Sa lucy Thomas MD Family History of Hypertension: active ? Amparo Thomas MD Hypertension active ? Bianca Thomas MD ENCOUNTERS Date Type Provider Location Encounter Diagnosis - In-person encounter Office Visit Bianca Thomas MD [facility] Family History of Hypertension:Famil y History Coronary Heart Disease male < 55:Family History of CVA or Stroke:Family History of Hyperlipidemia:Fam mehran History of Hypertension:Hyper tension VITAL SIGNS Date Observation Value Provider Body Mass Index (Ratio) 35.14 kg/m2 Chairez i Alice blood pressure, diastolic 98 mm[Hg] Felipe rri Alice blood pressure, systolic 132 mm[Hg] lOiva ri Alice pulse rate 94 /min Ivette Hebert lder oxygen saturation, oximetry 98 % Ivette Jenkins respiratory rate E&M 16 /min Ivette G sandro weight E&M 238 [lb_av] Ivette Hebert lder height E&M 69 [in_i] Ivette Bourgeoisjaren cook ALLERGIES No Known Drug Allergies HISTORY OF MEDICATION USE Medication Status Instructions Dates Provider Indications Com ments LISINOPRIL 10 MG ORAL TABLET active take one pill a day 4 Ivette Jenkins SOCIAL HISTORY Date Observation Value Provider social history reviewed E&M revi ewed - no changes required Bianca Thomas MD alcohol use, average drinks per day social Ivette Jenkins alcohol use yes Ivette Anup troncosoer smoking status Never smoker Ivette olivera FAMILY HISTORY Family Member Condition Father Family History of Co ngestive Heart Failure: Father Family History of Hy pertension: Father Family History of Hy perlipidemia: Father Family History of Di abetes: Father Family History of CV A or Stroke: Father Family History Coron mari Heart Disease male < 55: Mother Family History of Hy pertension: INSURANCE PROVIDERS Payer name Policy type / Coverage type [place] [employer] [place] Medicaid [id number] TREATMENT PLAN Date Name Performer New Patient : H is updated medication list for this problem includes: Lisinopril 10 Mg Oral Tabs (Lisinopril) ..... Take one pill a day Orders: A mbulatory BP (CPT-70052) C omplete Echo (CPT-59485) C arotid Duplex Bilateral (CPT-24161) R enal Artery Duplex (CPT-36815) S leep Study (*) Bianca Thomas MD Date Name Sleep Study Renal Artery Duplex Carotid Duplex Bilat eral Complete Echo HISTORY OF PROCEDURES Procedure Date Procedure Name Provider Procedure Notes S tatus Ambulatory BP Bianca Thomas MD co mpleted EKG Bianca Thomas MD compl eted
--- OUTSIDE RECORDS SUMMARY | 2024-12-12 09:31 | XMS_ITS | Clinical Summary ---
Author Organization [facility] Address [address] [place] [address] Care Team Providers Care Lumber Straightener Name Role Phone José Manuel Werner MD Unavailable [phone] Leandro Slater MD Primary Care Provider + Allergies No known active allergies Medications blood-glucose meter kitIndications:Type 2 diabetes mellitus with hyperglycemia, with long-term current use of insulin ([facility]) 1 Device daily 1 kit 03/08/20 23 Active blood glucose diagnostic stripIndications:Ty pe 2 diabetes mellitus with hyperglycemia, with long-term current use of insulin ([facility]) Use one strip to monitor home blood sugars daily. 100 each 04/30/20 23 Active lancets 31 gauge miscIndications:Typ e 2 diabetes mellitus with hyperglycemia, with long-term current use of insulin ([facility]) 1 Device daily 100 each 04/30/20 23 Active blood-glucose meter,continuous ([employer] G7 Claims Support Specialist) misc Use as directed. 1 each 06/02/20 24 Active Additional Information Patient not taking.Reported on 10/29/2024 lamoTRIgine XR (LaMICtal XR) 50 mg tablet extended release 24hr Take 1 tablet (50 mg total) by mouth daily 30 tablet 1 07/17/20 24 Active pen needle, diabetic (Pen Needle) 32 gauge x 5/32 needleIndications:T ype 2 diabetes mellitus with hyperglycemia, with long-term current use of insulin ([facility]) Use as directed once a day. 100 each 07/23/20 24 Active glipiZIDE (GLUCOTROL) 5 mg tabletIndications:T ype 2 diabetes mellitus with hyperglycemia, with long-term current use of insulin ([facility]) Take 1 tablet (5 mg total) by mouth 2 (two) times a day before breakfast and lunch 180 tablet 09/23/20 24 Active metFORMIN XR (GLUCOPHAGE XR) 500 mg 24 hr tablet Take 4 tablets (2,000 mg total) by mouth daily with breakfast 120 tablet 10/23/19 Active insulin glargine 100 unit/mL (3 mL) pen for injection Inject 18 Units under the skin daily 5 mL 10/23/19 Active blood-glucose sensor (Alter [address] G7 Sensor) device Use as directed. Change sensor every 10 days. 3 each 10/23/19 Active Additional Information Patient not taking.Reported on 10/29/2024 aspirin 81 mg enteric coated tabletIndications:H emiparesis affecting left side as late effect of cerebrovascular accident (CVA) ([facility]) Take 1 tablet (81 mg total) by mouth daily 30 tablet 10/29/19 026 Active atorvastatin (LIPITOR) 40 mg tabletIndications:H emiparesis affecting left side as late effect of cerebrovascular accident (CVA) ([facility]) Take 1 tablet (40 mg total) by mouth daily 90 tablet 10/29/19 25 025 Active clopidogreL (PLAVIX) 75 mg tabletIndications:H emiparesis affecting left side as late effect of cerebrovascular accident (CVA) ([facility]) Take 1 tablet (75 mg total) by mouth daily For 21 days 30 tablet 10/29/19 25 025 Active lisinopriL (PRINIVIL,ZESTRIL) 20 mg tabletIndications:T ype 2 diabetes mellitus with hyperglycemia, with long-term current use of insulin ([facility]),Primary hypertension Take 1 tablet (20 mg total) by mouth daily 90 tablet 10/29/19 25 026 Active omeprazole (PriLOSEC) 40 mg capsuleIndications: Gastroesophageal reflux disease without esophagitis Take 1 capsule (40 mg total) by mouth daily 90 capsule 10/29/19 25 01/22/2 026 Active sertraline (ZOLOFT) 100 mg tabletIndications:D epression, recurrent Take 1 tablet (100 mg total) by mouth daily 90 tablet 10/29/19 25 026 Active dulaglutide (TRULICITY) 0.75 mg/0.5 mL pen injector Inject 0.5 mL (0.75 mg total) under the skin every 7 days 2 mL 6 10/31/19 25 Active ondansetron ODT (ZOFRAN-ODT) 4 mg disintegrating tablet Take 1 tablet (4 mg total) by mouth every 8 (eight) hours as needed for nausea or vomiting 20 tablet 11/04/19 25 Active Active Problems Problem Noted Date Diagnosed Date Depression, recurrent 10/29/2024 Assessment & Plan (10/29/2024 3:24 PM SPECIAL MACHINE OPERATOR): Chronic, stable, increased anxiety and agitation. Patient has been off his medication for 3 months due to changing his primary care. No changes from established baseline, no red flag symptoms reported. Meds: Lamotrigine 50 mg daily, sertraline 100 mg Not following with psychiatry or therapist Changes today restart lamotrigine and sertraline at same dose Advised patient to establish care with therapist: Handout provided Referral for Psychiatry Class 3 severe obesity due t o excess calories with serious comorbidity and body mass index (BMI) of 40.0 to 44.9 in adult 10/23/2024 Assessment & Plan (10/29/2024 3:35 PM SPECIAL MACHINE OPERATOR): Body mass index is 40.1 kg/m . CLASSIFICATION Class 3 obesity (severe obesity): 40 or greater Wt Readings from Last 3 Encounters: 10/29/24 116.1 kg (256 lb) 10/23/24 114.1 kg (251 lb 8 oz) 06/25/24 112.2 kg (247 lb 6.4 oz) - Etiology: Stagnant lifestyle and diet, exercise is limited due to patient previously having stroke. - Meds Mounjaro 2.5 mg weekly and tolerating Plan - Continue Mounjaro 2.5 mg weekly and titrate up as tolerated - Encouraged pt to continue with lifestyle modification: Diet/exercise, food tracking apps, diary to reflect on relationship with food. - Have educated patient that Mediterranean diet is widely accepted as the most balanced diet for both weight loss and sustained weight loss. Handout given. - Education given on risk associated with elevated BMI - Labs: CBC, CMP, TSH, A1c, lipids as needed to rule out medical causes. - BMI Follow-up includes: nutrition counseling, exercise counseling, and education provided. Hemiparesis affecting left s shamar as late effect of cerebrovascular accident (CVA) 06/29/2024 Assessment & Plan (10/29/2024 3:21 PM SPECIAL MACHINE OPERATOR): CVA 3m ago treated [facility] Symptoms: Talking, L side strength upprand lower. These have improved. Just started to go back to work and is hard. Recent work incident. Meds: ASA, statin. Following with neuro whom is managing Vision changes 07/10/2023 Assessment & Plan (06/29/2024 5:52 PM CDT): Referral to ophthalmology Assessment & Plan (07/10/2023 4:51 AM CDT): Acute problem-this is a new problem an onset-this is more likely related to uncontrolled blood pressure and blood sugars Patient encouraged to get an appointment with [facility]oker to have a regular dilated eye exam-patient educated on how his diabetes and his high blood pressure can affect his vision within the microvascular system and is highly encouraged to have annual eye exams Follow-up with PCP as scheduled sooner p.r.n. Migraine without aura and wi thout status migrainosus, not intractable 04/30/2023 Assessment & Plan (04/30/2023 7:14 PM CDT): Acute on chronic problem-onset last 3 weeks with worsening he has had issues with his insomnia and chest pain. Will trial sumatriptan 50 mg-take 1 tablet at the onset of migraine headache, may repeat x1 dose after 2 hours if headache is not resolved Stay hydrated, encouraged to drink plenty of water Encouraged to monitor his blood pressure-patient informed that elevated blood pressure readings that are not controlled can also cause migraine headaches Work note completed for patient Annual physical exam 04/08/2023 Assessment & Plan (10/29/2024 3:20 PM SPECIAL MACHINE OPERATOR): Pt presents for Annual Health exam: Today patient is: stable - Have discussed sig PMH, Current meds/treatments, labs, images/test, and changes made by specialists if following. - ADL's, SDoH, and Safety discussed. - Education on lifestyle modification diet, exercise, wellness with handouts given as appropriate. - Age-appropriate and annual Vaccinations discussed. - Age approximate cancer screening discussed and referrals sent. - Pt has requested STI screening: No - Cessation/avoidance counseling on Tobacco/Vape/MJ/ETOH/Drugs and the health risks associated with use and benefits of quitting or never starting. - Basic screening labs today: CBC w/o dif , CMP , Lipid [facility], A1c, and TSH - Will continue will annual exam. Assessment & Plan (04/08/2023 1:06 PM CDT): Patient and I discussed the folllowing: -Healthy, low fat diet. Avoiding junk food/fast food. -30 minutes of exercise most days of the week. Increase to 45 minutes for weight loss. -Influenza vaccine every year -F/u in 1 year for Annual PE or sooner if needed Neuropathy 04/02/2023 Assessment & Plan (07/10/2023 4:54 AM CDT): Chronic problem-poorly controlled with current regimen Increase gabapentin to 600 mg b.i.d. Ordered gabapentin 300 mg-take 2 capsules b.i.d. for neuropathy pain Continue to monitor Assessment & Plan (04/30/2023 7:02 PM CDT): Chronic problem-improving Patient had not increased his gabapentin to 300 mg b.i.d. after 7 days as directed, states he was only taking daily Refills sent for gabapentin 300 mg b.i.d.-patient encouraged to take as directed to help with neuropathic pain while he is sleeping, this may help him rest better in decreasing insomnia event Continue to monitor Assessment & Plan (04/08/2023 1:01 PM CDT): Improved. Gabapentin has been helpful for his bilateral feet pain. Will continue gabapentin 300 mg at bedtime Assessment & Plan (04/02/2023 8:28 AM CDT): Bilateral feet. I would like to try gabapentin 300 mg at bedtime. I discussed titrating dose upward of 1 capsule 3 times a day as tolerated. We are going to start slowly only titrating to b.i.d.. Discussed side effects Hyperlipidemia associated with type 2 diabetes osman agosto 04/02/2023 Assessment & Plan (10/29/2024 3:28 PM SPECIAL MACHINE OPERATOR): The ASCVD Risk score (Mary LOVETT, et al., 2019) failed to calculate for the following reasons: The 2019 ASCVD risk score is only valid for ages 40 to 79 Risk score cannot be calculated because patient has a medical history suggesting prior/existing ASCVD Chronic: yes Controlled: no Meds:none Plan - Lipid profile today - Changes today: Have advised stating statin due to risk factors including previously elevated lipids, diabetes, hypertension, obesity. Pt is too young to calculate ASCVD score. Have advised lifestyle modification. - Educated modifiable risk factor reduction: Diet, exercise, smoking, alcohol, tighter blood pressure control, tighter diabetes control. - Educated on examples of lifestyle modification to maintain health. DIET: Choose lean proteins, whole grains, fruits and vegetables. Avoid white sugar, white flour, white rice, and white potatoes. Try to avoid processed foods. Try to limit fast foods as much as possible as these tend to be very high in calories/fat. Try to limit the consumption of red meat as it has been shown to increase risk of colon cancer. EXERCISE: The World Health Organization and [employer] recommends all adults get a minimum of 150 minutes of moderate physical activity a week. This can be completed as 30 minutes of brisk walking on most days of the week. It can also be completed as 75 minutes twice a week for those weekend warriors . Even 10 minutes of exercise a day can provide benefit and will add up over the week. If able, try to take the stairs instead of the elevator or park farther away in the parking lot. Start slow and try to increase your amount of activity over several weeks. Exercise will help to improve your cholesterol readings and blood pressure and to be overall healthier. Assessment & Plan (06/02/2024 3:57 PM CDT): Lipid abnormalities are stable, reviewed previous lipid levels in [facility]. Continue statin therapy. Lipitor (atorvastatin) Order for lipid panel was given today to be obtained. Pt voiced understanding of lab drawn and continuation of current medication regimen. Assessment & Plan (04/30/2023 7:08 PM CDT): Acute problem-this is a new diagnosis found with his most recent visit with PCP Continue with atorvastatin 20 mg daily Refills sent this is Continue to monitor No current lab values to review this visit-encouraged to have his labs drawn prior to seeing his PCP at the next visit Assessment & Plan (04/02/2023 8:29 AM CDT): New diagnosis, due for lab work., reviewed previous lipid levels in [facility]. Pharmacotherapy as ordered. Order for lipid panel was given today to be obtained. Pt voiced understanding of lab drawn and continuation of current medication regimen. Non compliance with medical treatment 03/08/2023 Assessment & Plan (03/08/2023 4:45 PM CDT): Mostly due to the fact that he was under insured. Patient states that he would being more compliant in the future Type 2 diabetes mellitus wit h hyperglycemia, with long-term current use of insulin 12/22/2021 Assessment & Plan (10/29/2024 3:20 PM SPECIAL MACHINE OPERATOR): Diabetes: chronic condition. control: poor on current medications: Last A1c: 8.3 Current Meds: Glipizide 5 mg, metformin 500 mg b.i.d., 2 0 appetite 2.5 mg Q weekly, glargine 18 units daily CGM: Patient reports was too much money, should be covered due to insulin Evidence of kidney dysfunction: minimal mAlb/cr <30 On YAYA- I or ARB: yes Will send referrals for no Labs today: A1c, CBC, CMP, mAlb/Cr Following with endocrinology whom is managing. Diabetes Education Reviewed diabetic disease process, standards of care, and possible disease complications I have discussed the following steps for improving diabetic care: diabetic diet with healthy meals that are low salt, low fat, high fiber daily 30 minutes of exercise (45-60 minutes if trying to lose weight) Encouraged to loose weight if overweight/obese, or maintain a healthy body weight if BMI normal home glucose monitoring and goals (fast 70-130 and 2 hr PP <180) HgA1C goal <7% If checking home bp, goal less than 140/90 on average, even better if <130/85 Check feet daily for sores, dryness, cracking; use daily moisturizer if needed and invest in good shoes See eye doctor at least once per year and have report sent to us Assessment & Plan (06/29/2024 5:51 PM CDT): Improving. Continue Ozempic 0.5 mg. We will increase it to 1 mg weekly after his last 0.5 mg pen. Follow-up 3 months Assessment & Plan (06/02/2024 3:56 PM CDT): Continue glipizide 5mg daily for now. Will start ozempmic .25mg weekly. Teaching done per teach back method and dummy pen. Discussed risks/ benefits of ozempic. Will have him f/u in 1 she month fo was referredr reche phoneIngredients for GI ck across Assessment & Plan (07/10/2023 4:45 AM CDT): Chronic problem-worsening with blood sugars up in the 300s-poorly controlled with current regimen Last known A1c 6.6% Will restart Tresiba 10 units daily-inject 10 units under the skin daily-plan to increase to 20 units daily at next visit if blood sugars continue to be elevated Ordered Tresiba 100 units per 3 mL Recommend heart healthy diet, diabetic friendly-low carb, low-cholesterol, low- fat, no added sugar Continue to monitor blood glucose Continue with Jardiance 25 mg daily Follow-up with PCP as scheduled Assessment & Plan (04/30/2023 7:06 PM CDT): Chronic problem-improved Last A1c 6.3 % Patient informed there was an order to have some labs drawn, encouraged to have them drawn today after this visit for review Pending labs, we discussed possibly starting him back on an oral medication for his diabetes-states his home blood glucose is running in the 200's Plan to start Jardiance 25 mg oral daily Encouraged to follow a healthy diet- low carb low-fat no added sugars Continue to monitor blood glucose at home Follow-up with PCP as scheduled sooner p.r.n. Assessment & Plan (04/02/2023 8:24 AM CDT): Will have him obtain an A1c today with labs. Pending what his A1c is I will call him with a diabetes plan. At this time of dictation his A1c was down to 6.3% off all of his medication. I suspect that his diabetes diagnosis was related to his antipsychotics as that is when his diabetes started after he started these medications. Now that he has been off of all of these medications his A1c is down. He has an appointment on the and will rediscuss if he wants to start an oral medication to keep numbers down. Does not want to start metformin as this gave him GI upset Assessment & Plan (03/08/2023 4:46 PM CDT): Placed orders for diabetic education and street cleaner, diabetic testing supplies, metformin and Tresiba. Encouraged patient to check his blood sugars and record them, bring in when he comes back to follow up with his primary care physician. Assessment & Plan (02/14/2022 10:06 AM CDT): Significant hyperglycemia - continue monitoring blood sugars at least twice a day Will send for free style jay as I think he will benefit greatly from continuos glucose monitoring Assessment & Plan (12/26/2021 3:56 PM CDT): Continue metformin a 1000 mg once daily. Will add Tresiba 10 units once daily. We went over instructions for use at last office visit. I showed him how to get information off the Internet on Tresiba. I also referred him to a automation qa tester. Will have him follow-up in 1 month I asked her to bring blood sugar readings. Glucometer strips and lancets have been called in Assessment & Plan (12/22/2021 9:06 AM CDT): - Assess patient's knowledge regarding uncontrolled diabetes. Review patients most recent HA1C level and discuss what it means. - Provide education where needed regarding the possibility of Cardiovascular disease, Nerve damage (neuropathy), kidney damage, eye damage (retinopathy), Foot damage, skin conditions. - Provide education regarding preventitive measures that can be done to monitor for these complications: yearly dialated eye exams, daily foot checks and diabetic foot care, office visits with lab draws 2-4 times per year to monitor diabetes and kidney status, etc. Glucose strips / glucometer given with teach back method used Glucose in office >500. We discussed insulin used, likely tresiba. Online video watched on how to administer Will increase metformin to 1000mg daily. Test blood sugar twice daily Will call in 2-3 days with update on blood sugar Will consider starting insulin pen My total encounter time on 12/19/2021 was 30 minutes which was spent in the activities documented in the note. Including diabetic teaching. This includes time spent prior to the visit and after the visit in direct care of the patient. This time does not include time spent in any separately reportable services. Myalgia 10/20/2021 Assessment & Plan (10/20/2021 1:31 PM SPECIAL MACHINE OPERATOR): Ibuprofen 800 mg q8h prn pain, fever, headaches. Vitamin D deficiency 05/23/2019 Assessment & Plan (06/04/2021 11:18 AM CDT): Due for repeat vitamin d Assessment & Plan (07/25/2020 8:45 PM CDT): Will recheck vitamin-D level Assessment & Plan (11/02/2019 8:39 PM SPECIAL MACHINE OPERATOR): Check vitamin d level today Sinus arrhythmia 05/21/2019 Assessment & Plan (10/29/2024 3:34 PM SPECIAL MACHINE OPERATOR): Chronic, stable No current complaints, patient not on rate control Generalized anxiety disorder 05/20/2019 Assessment & Plan (10/29/2024 3:26 PM SPECIAL MACHINE OPERATOR): Chronic, stable, unclear if just anxiety with depression versus bipolar. No changes from established baseline, no red flag symptoms reported. Meds: Sertraline 100 mg daily, lamotrigine 50 mg daily Not following with Psychiatry or therapy Have provided handout on therapist and encouraged him to make an appointment Referral to psychiatry for further management Assessment & Plan (06/29/2024 5:53 PM CDT): Increase lamotrigine to 100 mg once daily. Follow-up in 3 months Assessment & Plan (05/29/2024 3:53 PM CDT): Will start lamotrigine 25mg daily x 14 days, then increase to 50mg daily Assessment & Plan (04/30/2023 6:59 PM CDT): Acute on chronic problem-well controlled with current regimen Continue citalopram 20 mg daily Refills sent this visit Encouraged to follow behavioral counseling -patient informed with behavioral counseling and medication together can provide a higher percentage of resolution, the medication alone Continue to monitor Assessment & Plan (04/08/2023 1:01 PM CDT): HPI: has long hx of anxiety and depression. This is a previously treated problem, that is newly addressed again today as he hasn't been on medication or treated for at least 6 months. He was seeing a psychiatrist but states he can no longer afford the copay to keep seeing him and has gone off all the medications he was taking. He was asking about prozac, which he was previously on. Patient had also been previously on BuSpar, Zoloft, Depakote, trazodone, and Effexor. From the psychiatrist he had been on Zyprexa and Seroquel., Lexapro. Plan: I did talk to him about his history of anxiety and depression in that I am not a psychiatrist. Patient states he is no longer having problems with anger like he was in the past. He states he does not feel depressed like he once was. He is having some increased anxiety. I told him we could try an SSRI. Will try citalopram 20 mg once daily. Will have him follow-up in 3 months for recheck Assessment & Plan (03/08/2023 4:48 PM CDT): Patient not interested in going back to psychiatrist. Restarted Lexapro. Patient to discuss further with his primary care physician. He denies any suicidal ideations or homicidal ideations. Assessment & Plan (09/13/2021 12:33 PM SPECIAL MACHINE OPERATOR): Labs ordered for depakote level as ordered per Dr. Werner and added to yearly labs. Pt is much more stable today and calm. Will continue to f/u with Dr. Werner Assessment & Plan (07/05/2021 4:36 PM CDT): I was able to refer patient to Dr. José Manuel Werner an [place] fill only. I called his office after placing referral and was able to connect José Manuel Hilario to Dr. Werner's office personnel and they were able to do an intake and get the patient an appointment for today. Patient is going to report to their office today 11 30 for the appointment. Assessment & Plan (06/04/2021 11:19 AM CDT): Again stressed need for psychiatry referral. Pt is asking for treatment to help control anxiety. Continue prozac and buspar. Add clonazepam .5mg bid prn. Controlled substance agreement signed. Discussed medication and how to use. F/u 1 month for recheck. Assessment & Plan (03/14/2021 9:08 AM CDT): Will increase BuSpar to 15 mg t.i.d.. Continue fluoxetine 60 mg daily. Will try referral to psychiatry at [facility]. Patient was agreeable to this. Will schedule follow-up for 6 months but encouraged him to call in the interim if any problems or concerns,. Come up Assessment & Plan (01/05/2021 4:26 PM CDT): Improving. He has started counseling and will be seeing a psychiatrist through [facility] Assessment & Plan (12/22/2020 2:42 PM CDT): He has discontinued the seroquel. He is asking for short term disability papers to be filled out. I repeated that he needs to see psychiatry. Will continue him on fluoxetine and fill out paperwork on word that he sees the counselor today as scheduled and then work on psychiatry appointment either at [facility] or with Dr. Werner. We also discussed his use of supplements. States he already stopped, but I confirmed that he cannot take any internet testosterone and I recommend he stop any workout supplements as they may interfere with his mood, depression and medications we're trying to treat him with. Pt voiced understanding. Assessment & Plan (12/08/2020 9:10 PM SPECIAL MACHINE OPERATOR): Mood has improved with increase in prozac. depakote make him more hyper/ agitated. Discontinue depakote (pt only took twice) and discontinue nortriptyline. Start seroquel xl 50mg at bedtime. He does have an initial appt with counseling at [facility]. Will have him f/u in 3 months or sooner if needed. Assessment & Plan (11/24/2020 7:58 PM SPECIAL MACHINE OPERATOR): Will increase prozac to 60mg daily. I am unsure what happened with the depakote. I told him I had added it as a mood stabilizer, not just for sleep. If it is energizing, he can take it in the morning. If side effects are to the point of making him manic-like, then he is to call me and stop it. Nortriptyline at bedtime for sleep. 'as above, referral to psychiatry. Recommended counseling. Gave number and pamphlet to [facility] for counseling. Pt voiced understanding. Assessment & Plan (09/22/2020 10:09 AM SPECIAL MACHINE OPERATOR): Will increase prozac to 40mg daily. Add depakote 250mg at bedtime. Discussed SE's, risks/benefits of medication. Encouraged original referral to psychiatry. Will call psychiatry to help schedule appointment. Have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 years Desirable: <200 mg/dL Borderline high: 200-239 mg/dL High: >or= 240 mg/dL Literature References: 1. Expert Panel on Integrated Guidelines for Cardiovascular Health and Risk Reduction in Children and Adolescents. Pediatrics 2011;128:S213 2. NCEP Expert Panel. Circulation 2004;110:227 Current Interpretive Data was last revised on 2018. Triglycerides 274(H) <=149 mg/dL RACHAEL DIAZ Comment: Interpretive Data Ages < or = 9 years Acceptable: <75 mg/dL Borderline high: 75-99 mg/dL High: >or= 100 mg/dL Ages 10 to 20 years Acceptable: <90 mg/dL Borderline high: 90-129 mg/dL High: >or= 130 mg/dL Ages > or = 20 years Desirable: <150 mg/dL Borderline high: 150-199 mg/dL High: 200-499 mg/dL Very high: >or= 499 mg/dL Literature References: 1. Expert Panel on Integrated Guidelines for Cardiovascular Health and Risk Reduction in Children and Adolescents. Pediatrics 2011;128:S213 2. NCEP Expert Panel. Circulation 2004;110:227 Current Interpretive Data was last revised on 2018. HDL 35(L) >=40 mg/dL RACHAEL DIAZ Comment: Interpretive Data Ages < or = 19 years Acceptable: >45 mg/dL Borderline low: 40-45 mg/dL Low: <40 mg/dL Ages > or = 20 years Desirable: >or= 60 mg/dL Low: <40 mg/dL Literature References: 1. Expert Panel on Integrated Guidelines for Cardiovascular Health and Risk Reduction in Children and Adolescents. Pediatrics 2011;128:S213 2. NCEP Expert Panel. Circulation 2004;110:227 Current Interpretive Data was last revised on 2018. LDL, calculated 126 <=129 mg/dL RACHAEL DIAZ Comment: Interpretive Data Ages < or = 19 years Acceptable: <110 mg/dL Borderline high: 110-129 mg/dL High: >or= 130 mg/dL Ages > or = 20 years Optimal: <100 mg/dL Near optimal: 100-129 mg/dL Borderline high: 130-159 mg/dL High: >160 mg/dL Calculated using the Reza LDL-C estimating equation. This equation was implemented on 2024. Prior to this date LDL-C was estimated using the Friedewald equation. Literature References: 1. Expert Panel on Integrated Guidelines for Cardiovascular Health and Risk Reduction in Children and Adolescents. Pediatrics 2011;128:S213 2. NCEP Expert Panel. Circulation 2004;110:227 3. Reza Knott et al. FARIDA Cardiol. 2020 February 05;5(5):540-548. doi: 10.1001/[email or web address].2020.0013 Current Interpretive Data was last revised on 2024. Non-HDL Cholesterol 175 mg/dL [facility] Comment: Interpretive Data Ages < or = 19 years Acceptable: <120 mg/dL Borderline high: 120-144 mg/dL High: >145 mg/dL Ages > or = 20 years When triglycerides are >200 mg/dL, Non-HDL cholesterol is a secondary target of therapy with treatment goals that are 30 mg/dL greater than the LDL cholesterol target. Literature References: 1. Expert Panel on Integrated Guidelines for Cardiovascular Health and Risk Reduction in Children and Adolescents. Pediatrics 2011;128:S213 2. NCEP Expert Panel. Circulation 2004;110:227 Current Interpretive Data was last revised on 2018. Chol/HDL ratio 6 [facility] Blood 10/29/2024 10:1 6 AM SPECIAL MACHINE OPERATOR 10/29/2024 8:10 PM SPECIAL MACHINE OPERATOR us Leandro Slater MD LAB BLOOD ORDERABLES Fin al Result RACHAEL DIAZ [id number] [address] [place] [address] * (ABNORMAL) Comprehensive metabolic panel (10/29/2024 10:16 AM SPECIAL MACHINE OPERATOR) Sodium 136 135 - 145 mmol/L Potassium, pl 4.5 3.3 - 4.9 mmol/L [facility] Chloride 100 97 - 110 mmol/L [facility] CO2 24 22 - 32 mmol/L [facility] Anion gap 12 2 - 15 mmol/L [facility] BUN 16 6 - 25 mg/dL [facility] Creatinine 0.79(L) 0.80 - 1.30 mg/dL [facility] Glucose 352(H) 70 - 199 mg/dL [facility] Comment: Interpretive Data Fasting glucose >/= 126 mg/dl is diagnostic for diabetes. Fasting is defined as no caloric intake for at least 8 hours. Fasting glucose between 100 mg/dl to 125 mg/dl is diagnostic of prediabetes. In a patient with classic symptoms of hyperglycemia or hyperglycemic crisis, a random glucose >/= 200 mg/dl is diagnostic for diabetes. In the absence of unequivocal hyperglycemia, results should be confirmed by repeat testing. The classification and Diagnosis of Diabetes Diabetes Care 202; 46: S19-S40. Current interpretive data was last revised 2022. Calcium 9.4 8.5 - 10.3 mg/dL [facility] Bilirubin, total 0.6 0.1 - 1.2 mg/dL [facility] Protein, pl 7.3 6.5 - 8.5 g/dL [facility] Albumin 4.4 3.5 - 5.0 g/dL [facility] Alk phos 77 40 - 130 Units/L [facility] ALT 73(H) 7 - 55 Units/L [facility] AST 46 10 - 50 Units/L [facility] Blood 10/29/2024 10:1 6 AM SPECIAL MACHINE OPERATOR 10/29/2024 8:10 PM SPECIAL MACHINE OPERATOR Leandro Slater MD LAB BLOOD ORDERABLES Fin al Result RACHAEL [address] [address] [place] [address] * Albumin Creatinine Ratio, Urine (10/23/2024 11:54 AM SPECIAL MACHINE OPERATOR) Albumin Ur <12.0 mg/L Comment: Interpretive Data No reference range established. Current interpretive data was last revised 2019. Creatinine Ur 44.1 mg/dL [facility] Comment: Interpretive Data No reference range established. Current interpretive data was last revised 2019. Albumin Creatinine Ratio, Ur <27 1 - 29 mg/g RACHAEL DIAZ Urine 10/23/2024 11:5 4 AM SPECIAL MACHINE OPERATOR 10/23/2024 6:22 PM SPECIAL MACHINE OPERATOR Fabian Alvarado DO LAB URINE ORDERABLES Final Result RACHAEL DIAZ [address] [address] [place] [address] * (ABNORMAL) POCT hemoglobin A1c (10/23/2024 11:08 AM SPECIAL MACHINE OPERATOR) Hemoglobin A1C, POC 8.9 4.0 - 5.6 % Blood 10/23/2024 11:0 8 AM SPECIAL MACHINE OPERATOR Fabian Alvarado DO POINT OF CARE TEST ORDERABL ES Final Result * RetinaVue Scanner - OU - Both Eyes (10/23/2024) Anatomical Region Laterality Modality Head Fundus Photograp hy 10/23/2024 Fabian Alvarado DO OPHTH PHOTOGRAPHY Edited Re sult - Final * XR Chest PA Lateral 2 Views (10/20/2024 7:45 PM SPECIAL MACHINE OPERATOR) Anatomical Region Laterality Modality Body, Chest N/A Computed Radiogr aphy 10/20/2024 8:32 PM SPECIAL MACHINE OPERATOR Narrative 10/20/2024 8:50 PM SPECIAL MACHINE OPERATOR EXAM DESCRIPTION: XR CHEST PA LATERAL 2 VIEWS REASON FOR STUDY: cough Pt presents to ED with c/o chest pain x 2 hours ago woke up out of sleep. Pt complains of left arm numbness tingling also with a cough he has had for a month. Non smoker Hx of HTN No chest surgery No hx of cancer TECHNIQUE: 2 radiographic view(s) of the chest. COMPARISON: 03/22/2023 FINDINGS: LUNGS: Mild bibasilar atelectasis. The lungs are otherwise clear. No focal pulmonary parenchymal consolidation, pulmonary edema, pleural effusion, or pneumothorax. HEART/MEDIASTINUM: Cardiac silhouette normal in size. Mediastinal and hilar contours appear normal. LINES/TUBES: None. BONES: No acute osseous abnormality. IMPRESSION: No acute cardiopulmonary abnormality. THIS IS AN ELECTRONICALLY VERIFIED FINAL REPORT 10/20/2024 8:50 PM - Electronically signed by Any Chao M.D. AT: AT Report ID: [id number] Reading Location: [id number] Procedure Note Any Chao MD - 10/20/2024 EXAM DESCRIPTION: XR CHEST PA LATERAL 2 VIEWS REASON FOR STUDY: cough Pt presents to ED with c/o chest pain x 2 hours ago woke up out of sleep.Pt complains of left arm numbness tingling also with a cough he has had for a month. Non smoker Hx of HTN No chest surgery No hx of cancer TECHNIQUE: 2 radiographic view(s) of the chest. COMPARISON: 03/22/2023 FINDINGS: LUNGS: Mild bibasilar atelectasis. The lungs are otherwise clear. Nofocal pulmonary parenchymal consolidation, pulmonary edema, pleural effusion, or pneumothorax. HEART/MEDIASTINUM: Cardiac silhouette normal in size. Mediastinal andhilar contours appear normal. LINES/TUBES: None. BONES: No acute osseous abnormality. IMPRESSION: No acute cardiopulmonary abnormality. THIS IS AN ELECTRONICALLY VERIFIED FINAL REPORT 10/20/2024 8:50 PM - Electronically signed by Any Chao M.D. AT: AT Report ID: [id number] Reading Location: [id number] Steve Alexander MD IMG XR PROCEDURES Final Resu lt * ECG 12 lead (10/20/2024 7:23 PM SPECIAL MACHINE OPERATOR) 10/20/2024 7:23 PM SPECIAL MACHINE OPERATOR Narrative [facility] - 10/21/2024 1:54 PM SPECIAL MACHINE OPERATOR Vent Rate: 92 bpm RR Interval: 651 msec MT Interval: 159 msec QRS Duration: 105 msec QT Interval: 332 msec QTC Interval: 381 msec P-R-T Cameron: 28 - -40 - 18 degrees IMPRESSION: SINUS RHYTHM LEFT AXIS DEVIATION [QRS AXIS < -30] ABNORMAL ECG NO CHANGE FROM PREVIOUS TRACING NOTED Electronically Signed By: Viral Conner MD Steve Alexander MD ECG ORDERABLES Final Result Performing Organization Address [facility] Co de Phone Number [facility] * Troponin T high-sensitivity series (baseline, 2hr, 4hr, 6hr) (10/20/2024 7:15 PM SPECIAL MACHINE OPERATOR) Pathologist [facility] Trop T hs <6 <=22 ng/L Comment: Hemolysis present. Results may be affected. Interpretive Data For further hscTnT resources including the diagnostic algorithm and an aid in interpretation, copy and paste this link: [email or web address].testcatalog.org/[email or web address] Current Interpretive Data last revised 2020. Blood 10/20/2024 7:15 PM SPECIAL MACHINE OPERATOR 10/20/2024 7:20 PM SPECIAL MACHINE OPERATOR Steve Alexander MD LAB BLOOD ORDERABLES Final R esult Performing Organization Address [facility] Co de Phone Number RACHAEL [facility] ([place]) [address] [facility] [place] [address] * eGFR (10/20/2024 7:15 PM SPECIAL MACHINE OPERATOR) eGFR >90 >=60 mL/min/1. 73 m2 Comment: Interpretive Data Reference Interval Normal >/= 90 mL/min/1.73m2 Mildly decreased* 60 - 89 mL/min/1.73m2 Mildly to moderately decreased 45 - 59 mL/min/1.73m2 Moderately to severely decreased 30 - 44 mL/min/1.73m2 Severely decreased 15 - 29 mL/min/1.73m2 Kidney Failure < 15 mL/min/1.73m2 *Relative to young adult level Estimated glomerular filtration rate is determined by the 2020 CKD-EPI equation recommended by the National Kidney Foundation (A Unifying Approach to GFR Estimation: Recommendations of the NKF-ASK Task Force on Reassessing the Inclusion of Race in Diagnosing Kidney Disease, JASN 2020). The CKD-EPI equation should not be used for patients with unstable renal function and has not been validated in children and those over 70. Current interpretive data was last reviewed 2021. Blood 10/20/2024 7:15 PM SPECIAL MACHINE OPERATOR 10/20/2024 7:20 PM SPECIAL MACHINE OPERATOR us Steve Alexander MD LAB BLOOD ORDERABLES Final R esult [facility] ([place]) [address] [facility] [place] [address] * Differential, auto (10/20/2024 7:15 PM SPECIAL MACHINE OPERATOR) Neutrophil abs 3.6 1.5 - 6.5 K/cumm Imm gran abs 0.0 0.0 - 0.1 K/cumm [facility]) Lymphocyte abs 3.1 0.8 - 3.3 K/cumm [facility]) Monocyte abs 0.5 0.2 - 0.8 K/cumm [facility] ([place]) Eosinophil abs 0.2 0.0 - 0.5 K/cumm [facility] ([place]) Basophil abs 0.0 0.0 - 0.1 K/cumm [facility] ([place]) Neutrophil pct 48.2 % [facility] ([place]) Comment: Interpretive Data Percent cell count reference ranges are not reported, since discordance with absolute values may lead to misinterpretation of CBC data. Current Interpretive Data was last revised on 2018. Imm gran pct 0.3 % [facility] ([place]) Comment: Interpretive Data Percent cell count reference ranges are not reported, since discordance with absolute values may lead to misinterpretation of CBC data. Current Interpretive Data was last revised on 2018. Lymphocyte pct 41.5 % [facility]) Comment: Interpretive Data Percent cell count reference ranges are not reported, since discordance with absolute values may lead to misinterpretation of CBC data. Current Interpretive Data was last revised on 2018. Monocyte pct 6.5 % [facility] ([place]) Comment: Interpretive Data Percent cell count reference ranges are not reported, since discordance with absolute values may lead to misinterpretation of CBC data. Current Interpretive Data was last revised on 2018. Eosinophil pct 3.1 % [facility]) Comment: Interpretive Data Percent cell count reference ranges are not reported, since discordance with absolute values may lead to misinterpretation of CBC data. Current Interpretive Data was last revised on 2018. Basophil pct 0.4 % [facility] ([place]) Comment: Interpretive Data Percent cell count reference ranges are not reported, since discordance with absolute values may lead to misinterpretation of CBC data. Current Interpretive Data was last revised on 2018. Blood 10/20/2024 7:15 PM SPECIAL MACHINE OPERATOR 10/20/2024 7:20 PM SPECIAL MACHINE OPERATOR us Steve Alexander MD LAB BLOOD ORDERABLES Final R esult [facility] ([place]) [address] [facility] [place] [address] * (ABNORMAL) CBC with auto differential (10/20/2024 7:15 PM SPECIAL MACHINE OPERATOR) WBC 7.4 3.8 - 9.9 K/cumm Hgb 15.5 13.0 - 17.5 g/dL [facility]) Hct 41.9 38.9 - 50.3 % [facility]) Plt 177 150 - 400 K/cumm [facility]) MPV 11.4 9.1 - 12.3 fL [facility]) RBC 5.15 4.30 - 5.80 M/cumm [facility] ([place]) MCV 81.4 81.3 - 96.4 fL [facility]) MCH 30.1 27.1 - 33.3 pg [facility] ([place]) MCHC 37.0(H) 32.3 - 35.7 g/dL [facility] ([place]) RDW CV 12.4 11.1 - 14.9 % [facility] ([place]) RDW SD 36.7 35.7 - 48.1 fL [facility] ([place]) NRBC abs 0.00 0.00 - 0.01 K/cumm [facility] ([place]) Blood 10/20/2024 7:15 PM SPECIAL MACHINE OPERATOR 10/20/2024 7:20 PM SPECIAL MACHINE OPERATOR Steve Alexander MD LAB BLOOD ORDERABLES Final R esult Performing Organization Address City/[facility]/ZIP Co de Phone Number RACHAEL COU[facility]TER ([place]) [address] [facility] [place] [address] * D-dimer, quantitative (10/20/2024 7:15 PM SPECIAL MACHINE OPERATOR) D-Dimer <215 <=499 ng/mL FEU [facility] ([place]) Comment: Interpretive data FDA approved the D-dimer, in conjunction with a low or moderate pretest probability score, to exclude venous thromboembolic events (VTE) (PE and DVT) in outpatients when the D-dimer result is < 500 ng/ml FEU. Evidence supports using an age-adjusted D-dimer cut-off for outpatients older than 50 (age x 10) to improve specificity without sacrificing sensitivity. Example: age 68, VTE cut-off 680 ng/ml FEU. References; Schouten HT et al. Brit Med J. 2013;346:f2492. Erin et al. Annals Int Med. 2015;163:701-11. Current interpretive data was last revised on 2019. Blood 10/20/2024 7:15 PM SPECIAL MACHINE OPERATOR 10/20/2024 7:20 PM SPECIAL MACHINE OPERATOR Steve Alexander MD LAB BLOOD ORDERABLES Final R esult Performing Organization Address City/[facility]/ZIP Co de Phone Number RACHAEL COULTER ([place]) [address] [facility] [place] [address] * (ABNORMAL) Comprehensive metabolic panel (10/20/2024 7:15 PM SPECIAL MACHINE OPERATOR) Sodium 134(L) 135 - 145 mmol/L Potassium, pl 4.3 3.3 - 4.9 mmol/L [facility] ([place]) Comment:Moderately Hemolyzed Specimen. Results may be affected. Chloride 97 97 - 110 mmol/L [facility] ([place]) CO2 24 22 - 32 mmol/L [facility] ([place]) Anion gap 14 2 - 15 mmol/L [facility] ([place]) BUN 13 6 - 25 mg/dL [facility] ([place]) Creatinine 0.73(L) 0.80 - 1.30 mg/dL [facility] ([place]) Glucose 384(H) 70 - 199 mg/dL [facility] ([place]) Comment: Interpretive Data Fasting glucose >/= 126 mg/dl is diagnostic for diabetes. Fasting is defined as no caloric intake for at least 8 hours. Fasting glucose between 100 mg/dl to 125 mg/dl is diagnostic of prediabetes. In a patient with classic symptoms of hyperglycemia or hyperglycemic crisis, a random glucose >/= 200 mg/dl is diagnostic for diabetes. In the absence of unequivocal hyperglycemia, results should be confirmed by repeat testing. The classification and Diagnosis of Diabetes Diabetes Care 2021; 46: S19-S40. Current interpretive data was last revised 2022. Calcium 9.6 8.5 - 10.3 mg/dL [facility] ([place]) Bilirubin, total 0.4 0.1 - 1.2 mg/dL [facility] ([place]) Protein, pl 7.3 6.5 - 8.5 g/dL [facility] ([place]) Albumin 4.6 3.5 - 5.0 g/dL [facility] ([place]) Alk phos 86 40 - 130 Units/L [facility] ([place]) ALT 44 7 - 55 Units/L [facility] ([place]) AST 34 10 - 50 Units/L [facility]) Blood 10/20/2024 7:15 PM SPECIAL MACHINE OPERATOR 10/20/2024 7:20 PM SPECIAL MACHINE OPERATOR Steve Alexander MD LAB BLOOD ORDERABLES Final R esult [facility] ([place]) [address] [facility] [place] [address] from Last 3 Months Insurance [employer]UE [employer] [place] [employer] OOS [employer] COVENTRY HMO/POS [employer] COVENTRY HMO/POS [employer]VEL[employer] INSURANCE Care Teams Lumber Straightener Relationship Specialty Start Date End Date Leandro Slater MD [address] [facility] [address] [place] [address] PCP - General Family Medicine 10/29/24 José Manuel Werner MD Referring Physician Psychiatry 12/02/21
--- OUTSIDE RECORDS SUMMARY | 2024-12-12 09:31 | XMS_ITS | Referral Summary ---
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 ASSEMBLER) 10/20/2024 7:23 PM OPTICAL INSTRUMENT ASSEMBLER Narrative [facility] - 10/21/2024 1:54 PM OPTICAL INSTRUMENT ASSEMBLER Vent Rate: 92 bpm RR Interval: 651 msec DE Interval: 159 msec QRS Duration: 105 msec QT Interval: 332 msec QTC Interval: 381 msec P-R-T Hildreth: 28 - -40 - 18 degrees IMPRESSION: SINUS RHYTHM LEFT AXIS DEVIATION [QRS AXIS < -30] ABNORMAL ECG NO CHANGE FROM PREVIOUS TRACING NOTED Electronically Signed By: Viral Conner MD Steve Alexander MD ECG ORDERABLES Final Result Performing Organization Address [facility] Co de Phone Number [facility] * Troponin T high-sensitivity series (baseline, 2hr, 4hr, 6hr) (10/20/2024 7:15 PM OPTICAL INSTRUMENT ASSEMBLER) Trop T hs <6 <=22 ng/L Comment: Hemolysis present. Results may be affected. Interpretive Data For further hscTnT resources including the diagnostic algorithm and an aid in interpretation, copy and paste this link: https://nrl.testcatalog.org/show/hsTrop Current Interpretive Data last revised 2020. Blood 10/20/2024 7:15 PM OPTICAL INSTRUMENT ASSEMBLER 10/20/2024 7:20 PM OPTICAL INSTRUMENT ASSEMBLER Steve Alexander MD LAB BLOOD ORDERABLES Final R esult Performing Organization Address City/[facility] Co de Phone Number RACHAEL COULTER ([place]) 1 [facility] Department [place] [address] * eGFR (10/20/2024 7:15 PM OPTICAL INSTRUMENT ASSEMBLER) eGFR >90 >=60 mL/min/1. 73 m2 Comment: [...] last reviewed 2021. Blood 10/20/2024 7:15 PM OPTICAL INSTRUMENT ASSEMBLER 10/20/2024 7:20 PM OPTICAL INSTRUMENT ASSEMBLER us Steve Alexander MD LAB BLOOD ORDERABLES Final R esult [facility] ([place]) 1 [facility] [place] [address] * Differential, auto (10/20/2024 7:15 PM OPTICAL INSTRUMENT ASSEMBLER) Neutrophil abs 3.6 1.5 - 6.5 K/cumm [...] revised on 2018. Blood 10/20/2024 7:15 PM OPTICAL INSTRUMENT ASSEMBLER 10/20/2024 7:20 PM OPTICAL INSTRUMENT ASSEMBLER us Steve Alexander MD LAB BLOOD ORDERABLES Final R esult [facility] ([place]) 1 [facility] [place] [address] * (ABNORMAL) CBC with auto differential (10/20/2024 7:15 PM OPTICAL INSTRUMENT ASSEMBLER) WBC 7.4 3.8 - 9.9 K/cumm Hgb [...] ([place]) MCHC 37.0(H) 32.3 - 35.7 g/dL RACHAEL COULTER ([place]) RDW CV 12.4 11.1 - 14.9 % RACHAEL COULTER ([place]) RDW SD 36.7 35.7 - 48.1 fL RACHAEL COULTER ([place]) NRBC abs 0.00 0.00 - 0.01 K/cumm RACHAEL COULTER ([place]) Blood 10/20/2024 7:15 PM OPTICAL INSTRUMENT ASSEMBLER 10/20/2024 7:20 PM OPTICAL INSTRUMENT ASSEMBLER Steve Alexander MD LAB BLOOD ORDERABLES Final R esult Performing Organization Address City/[facility]/ZIP Co de Phone Number [place]EL [place] 1 [facility] [place] [address] * D-dimer, quantitative (10/20/2024 7:15 PM OPTICAL INSTRUMENT ASSEMBLER) D-Dimer <215 <=499 ng/mL FEU RACHAEL COULTER [...] et al. Brit Med J. 2013;346:f2492. Erin BARRON et al. Annals Int Med. 2015;163:701-11. Current interpretive data was last revised on 2019. Blood 10/20/2024 7:15 PM OPTICAL INSTRUMENT ASSEMBLER 10/20/2024 7:20 PM OPTICAL INSTRUMENT ASSEMBLER Steve Alexander MD LAB BLOOD ORDERABLES Final R esult Performing Organization Address City/[facility]/ZIP Co de Phone Number [place]EL [place] 1 [facility] [place] [address] * (ABNORMAL) Comprehensive metabolic panel (10/20/2024 7:15 PM OPTICAL INSTRUMENT ASSEMBLER) Sodium 134(L) 135 - 145 mmol/L Potassium, [...] [facility] ([place]) Blood 10/20/2024 7:15 PM OPTICAL INSTRUMENT ASSEMBLER 10/20/2024 7:20 PM OPTICAL INSTRUMENT ASSEMBLER Steve Alexander MD LAB BLOOD ORDERABLES Final R esult [facility]EL [facility] ([place]) 1 [facility] Department [place] [address] from Last 3 Months Insurance [employer] Agent Panda OOS [employer] [place] HMO/POS [employer] [place] H[place]/POS [employer] Care Teams Esol Teacher Relationship Specialty Start Date End Date Leandro Slater MD [address] [facility] [address] [place] [address] PCP - General Family Medicine 10/29/24 José Manuel Werner MD Referring Physician Psychiatry 12/02/21
--- OUTSIDE RECORDS SUMMARY | 2024-12-12 09:35 | XMS_ITS | CONTINUITY OF CARE DOCUMENT ---
Author Name emily diaz Address Unknown Organization [facility] Address [address] [place] [address] Phone [phone] Care Team Providers Care Consumer Electronic Retail Specialist Name Role Phone Bianca Thomas MD Unavailable [phone] SAMIR HERNANDEZ MD Unavailable SAMIR HERNANDEZ MD Unavailable [phone] PROBLEMS Condition Status Date Provider Notes Family History of Hypertension: active ? Amparo Thomas MD Family History Coronary Hear t Disease male < 55: active ? Bainca Thomas MD Family History of CVA or Stroke: active ? Tomas Thomas MD Family History of Hyperlipidemia: active ? Sa lucy Thomas MD Family History of Hypertension: active ? Amparo Thomas MD Hypertension active ? Bianca Thomas MD ENCOUNTERS Date Type Provider Location Encounter Diagnosis - In-person encounter Office Visit Bianca Thomas MD [place] [facility] Family History of Hypertension:Famil y History Coronary Heart Disease male < 55:Family History of CVA or Stroke:Family History of Hyperlipidemia:Fam mehran History of Hypertension:Hyper tension VITAL SIGNS Date Observation Value Provider Body Mass Index (Ratio) 35.14 kg/m2 Chairez i Alice blood pressure, diastolic 98 mm[Hg] Felipe rri Alice blood pressure, systolic 132 mm[Hg] Oliva ri Alice pulse rate 94 /min Ivette [...] Payer name Policy type / Coverage type [place] Medicaid [id number] TREATMENT PLAN Date Name Performer New Patient : H is updated medication list for this problem includes: Lisinopril 10 Mg Oral Tabs (Lisinopril) ..... Take one pill a day Orders: A mbulatory BP (CPT-34799) C omplete Echo (CPT-99589) C arotid Duplex Bilateral (CPT-61806) R enal Artery Duplex (CPT-41048) S leep Study (*) Bianca Thomas MD Date Name Sleep Study Renal Artery Duplex Carotid Duplex Bilat eral Complete Echo HISTORY OF PROCEDURES Procedure Date Procedure Name Provider Procedure Notes S tatus Ambulatory BP Bianca Thomas MD co mpleted EKG Bianca Thomas MD compl eted
--- NOTE | 2024-12-12 09:49 | ED_ITS ---
HPI - Back Pain/Injury General Chief Complaint: Back Pain/Injury Stated Complaint: Low Back Pain Time Seen by Provider: 12/12/24 09:30 Source: patient Mode of arrival: ambulatory Limitations: no limitations History of Present Illness HPI Narrative: 34 yo M presents with c/o low back pain without radiation of pain. Pain started yesterday. no injury. Tested positive for influenza A. On day 3 of symptoms. Has been laying around more than usual. No urinary symptoms. Taking tylenol without relief of pain. Ambulatory without steady gait. All systems reviewed and negative except as noted above. Related Data Home Medications ?Medication ?Instructions ?Recorded ?Confirmed ?Last Taken ?Type empagliflozin 25 mg tablet 25 mg PO DAILY 08/08/23 03/18/24 Unknown History (Jardiance) lisinopril 5 mg tablet 5 mg PO DAILY 08/08/23 03/18/24 Unknown History meloxicam 7.5 mg tablet 7.5 mg PO DAILY 03/18/24 03/18/24 Unknown History aspirin 81 mg tablet,delayed mg 12/12/24 Unknown History release atorvastatin 40 mg tablet mg 12/12/24 Unknown History clopidogrel 75 mg tablet mg 12/12/24 Unknown History metformin 500 mg tablet,extended mg PO 12/12/24 Unknown History release 24 hr omeprazole 40 mg capsule,delayed mg 12/12/24 Unknown History release oseltamivir 75 mg capsule mg 12/12/24 Unknown History sertraline 100 mg tablet mg 12/12/24 Unknown History tirzepatide 2.5 mg/0.5 mL mg subcut 12/12/24 Unknown History subcutaneous pen injector (Mounjaro) Allergies Allergy/AdvReac Type Severity Reaction Status Date / Time No Known Allergies Allergy Unknown Verified 03/18/24 17:15 Review of Systems Review of Systems: CONSTITUTIONAL: Denies fever, chills, or sweats. EYES: Denies visual changes, redness, or discharge. ENT: Denies rhinorrhea, congestion, sore throat, or otalgia. CARDIOVASCULAR: Denies chest pain, palpitations, or edema. RESPIRATORY: Denies cough or dyspnea. GASTROINTESTINAL: Denies abdominal pain, nausea, vomiting, or diarrhea. GENITOURINARY: Denies dysuria or hematuria. SKIN: Denies rash or itching. MUSCULOSKELETAL: Reports low back pain. Denies joint pain, or myalgia. NEUROLOGIC: Denies headache, numbness, or weakness. PSYCHIATRIC: Denies anxiety or depression. All other systems reviewed are negative, except as documented in HPI. PMFSH Past Medical History Medical History Diabetes Diarrhea Hypertension No pertinent past medical history Surgical History Surgical History No pertinent past surgical history Family History Family History Mother Family history non-contributory Social History Social History Living arrangements: with family Gender identity (if verbalized by the patient): Male Comments At time of signature, agree with nursing past medical, surgical, social and family history. There is no relevant family history pertinent to the presenting complaint. Exam Narrative: GENERAL: This is a well-nourished, well-developed patient, in no apparent distress. HEAD: normocephalic, atraumatic. EYES: PERRL. Sclera clear/white. Vision is grossly intact. EARS: External ears normal NOSE: External nose normal NECK: Neck supple, non-tender without lymphadenopathy, masses or thyromegaly. CARDIOVASCULAR: Regular rate and rhythm without murmurs, gallops, or rubs. RESPIRATORY: Clear to auscultation. Breath sounds equal bilaterally. No wheezes, rales, or rhonchi. SKIN: warm, Dry, intact with no suspicious lesions or rash, good texture and turgor. NEURO: awake, alert, and oriented to person, place and time. There were no obvious focal neurologic abnormalities. EXTREMITIES: No joint tenderness, effusion, or edema noted. BACK: no midline tenderness. Generalized muscular tenderness. Bilateral straight leg raise negative. Bilateral lower extremity strength 5/5. Course Course Level of Care: Express Care Visit Vital Signs Vital signs: Vital Signs Temperature 36.3 C L 12/12/24 09:16 Pulse Rate 122 H 12/12/24 09:16 Respiratory Rate 16 12/12/24 09:16 Blood Pressure 154/103 H 12/12/24 09:16 Pulse Oximetry 98 12/12/24 09:16 Oxygen Delivery Room Air 12/12/24 09:16 Temperature 36.3 C L 12/12/24 09:16 Pulse Rate 122 H 12/12/24 09:16 Respiratory Rate 16 12/12/24 09:16 Blood Pressure 154/103 H 12/12/24 09:16 Pulse Oximetry 98 12/12/24 09:16 Oxygen Delivery Room Air 12/12/24 09:16 Reviewed, HR 110 auscultated MDM - Back Pain/Injury MDM Narrative Medical decision making narrative: will treat muscular back pain with Robaxin, prednisone, Tylenol. Recommend stretching, ice and heat. No neuro deficits. Ambulatory with steady gait. Please be advised this is a medical document. It is intended for [id number] communication. It is written in medical language and may contain unfamiliar abbreviations or verbiage. Medical documents are intended to carry relevant information, facts as evident, and the clinical opinion of the practitioner at the time of the encounter. This report may have been done utilizing a voice recognition system. Attempts have been made to correct errors. However, there may be uncorrected grammatical, spelling, and recognition errors present. The file time of this note does not necessarily represent the time of service. Discharge Plan Discharge Clinical Impression: Strain of muscle, fascia and tendon of lower back, initial encounter Patient Disposition: Home, Self-Care Condition: Stable Instructions: Low Back Strain (ED), Lower Back Exercises (ED) Additional Instructions: take medications as prescribed. Take Tylenol every 6-8 hours as needed for pain. Alternate between ice and heat. Do stretching exercises as tolerated. Follow-up with your doctor if symptoms are not improving. Patient Language: Persian Prescriptions: New prednisone 20 mg tablet See Rx Instructions .ROUTE .COMPLEX Qty: 12 0RF Rx Instructions: Take 3 tablets today, then 2 tablets daily for 3 days then 1 tablet daily for 3 days. methocarbamol 750 mg tablet 750 mg PO Q8H PRN (Reason: muscle pain/spasm) Qty: 30 0RF No Action meloxicam 7.5 mg tablet 7.5 mg PO DAILY atorvastatin 40 mg tablet sertraline 100 mg tablet clopidogrel 75 mg tablet omeprazole 40 mg capsule,delayed release(DR/EC) aspirin 81 mg tablet,delayed release (DR/EC) oseltamivir 75 mg capsule metformin 500 mg tablet extended release 24 hr PO Mounjaro 2.5 mg/0.5 mL pen injector SUBCUT Jardiance 25 mg tablet 25 mg PO DAILY lisinopril 5 mg tablet 5 mg PO DAILY Follow-up/Referrals: PHYSICIAN NOT ON STAFF,NONSTAFF [Primary Care Provider] - Time of Disposition: 09:27
== END 2024-12-12 09:36 | disposition home or self-care (01) ==
PROVIDERS: Emergency Provider Nurse Practitioner Family
DX: S39.012A Strain of muscle, fascia and tendon of lower back, initial encounter (principal); X58.XXXA Exposure to other specified factors, initial encounter; E11.9 Type 2 diabetes mellitus without complications; Z79.84 Long term (current) use of oral hypoglycemic drugs; I10 Essential (primary) hypertension
CPT/HCPCS: 99213; G0463

== ENCOUNTER 2025-05-31 10:20 | Emergency (ER) | payer OTHER, SELFPAY ==
--- NOTE | ~2025-05-31 | XR_ITS ---
XR elbow LT min 3V 05/31/2025 10:41 INDICATION: Left elbow pain PROCEDURE: 4 views left elbow COMPARISON: No prior studies for comparison. FINDINGS: Fracture, dislocation or subluxation is not identified. The soft tissues appear within normal limits. No foreign bodies are identified. IMPRESSION: 1: NO ACUTE BONE OR JOINT ABNORMALITY IDENTIFIED. Reviewed, dictated and finalized at location O.
--- OUTSIDE RECORDS SUMMARY | 2025-05-31 10:22 | XMS_ITS | Clinical Summary ---
Author Organization [facility] Address [address] [place] [address] Phone Care Team Providers Care Cloth Hand Name Role Phone Jessica Loera APRN, DATA CONTROL CLERK Primary Care Provider Marleen Reed APRN, HYDRAULIC PRESS TENDER Unavailable [phone] Allergies No known active allergies Medications Blood Glucose Monitoring Suppl Device Diagnosis: Diabetes type 2 Blood testing frequency: 3 times a day 1 Each 4 Active Lancets Misc Use as directed 200 Lancet . 2 4 Active Glucose Blood Strip Diagnosis: Diabetes type 2 Blood testing frequency: 3 times a day 200 Strip 2 4 Active lamoTRIgine (LaMICtal) 25 MG Tablet Take 25 mg by mouth daily. Active atorvastatin (LIPITOR) 40 MG TabletIndicati ons:History of CVA (cerebrovascul ar accident) Take 1 Tablet by mouth daily. 30 Tablet 3 5 Active Rabies vaccine, PCEC (RABAVERT) Recon Suspension 1 mL by Intramuscular route See Admin Instructions. Give on day 3 (04/27), day 7 (05/01), and day 14 (05/08) 1 mL 2 5 Active Active Problems Problem Noted Date Diagnosed Date Vision changes 05/26/2024 Uncontrolled type 2 DM with hyperosmolar nonketotic hyperglycemia 05/26/2024 Obesity (BMI 30-39.9) 05/26/2024 Polycythemia 05/26/2024 HTN (hypertension) 05/26/2024 HLD (hyperlipidemia) 05/26/2024 Resolved Problems Problem Noted Date Diagnosed Date Resolved Date CVA (cerebral vascular accident) 05/26/2024 05/27/2024 Encounters Date Type Department Care Team Description 04/27/2025 Telephone [facility] Utilization Review/Infection Control [address] [place] [address] Kalie Contreras RN Follow-up 04/25/2025 11:04 PM CDT - 04/26/2025 12:16 AM CDT Emergency [facility] Emergency [address] [place] [address] Mauricio Gauthier MD Dog bite Discharge Disposition: Left Against Medical Advice 04/25/2025 Travel from Last 3 Months Immunizations Immunization Administration Dates Next Due RABIES - IM Fibroblast Culture Vaccine RABIES IG IM/SQ 04/26/2025 Family History Medical History Relation Name Comments [...] drink = 0.6 oz pur e alcohol) [facility] Utilities Answer Date Recorded In the [...] any time in the past 12 m [facility], were you homeless or living in a halfway (including now)? No 05/26/2024 Sex and Gender Information Value Date Recorded Sex Assigned at Not on file Legal Sex Male 8:02 PM CDT Gender Identity Not on file Sexual Orientation Not on file Last Filed Vital Signs Vital Sign Reading Time Taken Comments Blood Pressure 155/103 04/25/2025 11:01 PM CDT Pulse 94 04/25/2025 11:01 PM CDT Temperature 36 C (96.8 F) 04/25/2025 11:01 PM CDT Respiratory Rate 16 04/25/2025 11:01 PM CDT Oxygen Saturation 98% 04/25/2025 11:01 PM CDT Inhaled Oxygen Concentration - - Weight 117.9 kg (260 lb) 04/25/2025 11:01 PM CDT Height 172.7 cm (5' 8) 04/25/2025 11:01 PM CDT Body Mass Index 39.53 04/25/2025 11:01 PM CDT Plan of Treatment Health Maintenance Due Date Last Done Comments Diabetes: Eye Exam 1989 Diabetes: Foot Exam 1989 Hepatitis C Virus (HCV) Screening 1989 Hepatitis B Immunization (1 of 3 - 19+ 3-dose series) 01/21/2008 Pneumococcal Immunization Combined (1 of 2 - PCV) 01/21/2008 Human Papillomavirus (HPV) Immunization (1 - 3-dose SCDM series) 01/21/2016 SARS-COV-2 Immunization ( season) 2024 Diabetes: Hemoglobin A1c 04/28/2025 025, 10/23/2024, 05/26/2024, Additional history exists Diabetes: Nephropathy Screening 05/27/2025 05/27/2024, 09/18/2023, 03/06/2023 Influenza Immunization (#1) 2025 12/19/2021, 1 Respiratory Syncytial Virus (RSV) Immunization (Adult) (1 [...] - 145 mmol/L 05/27/2024 5:08 AM CDT [facility] POTASSIUM 3.6 3.5 - 5.1 mmol/L 05/27/2024 5:08 AM CDT [facility] CHLORIDE 102 98 - 107 mmol/L 05/27/2024 5:08 AM CDT [facility] CO2, VENOUS 24 22 - 30 mmol/L 05/27/2024 5:08 AM CDT [facility] ANION GAP 13.6 <18.0 mmol/L 05/27/2024 5:08 AM CDT [facility] GLUCOSE 258(H) 70 - 99 mg/dL 05/27/2024 5:08 AM CDT [facility] BUN 18 9 - 21 mg/dL 05/27/2024 5:08 AM CDT [facility] CREATININE, BLOOD 0.86 0.70 - 1.30 mg/dL 05/27/2024 5:08 AM CDT [facility] BUN/CREATININE RATIO 21(H) 12 - 20 ratio 05/27/2024 5:08 AM CDT [facility] TOTAL PROTEIN 6.7 6.3 - 8.2 g/dL 05/27/2024 5:08 AM CDT [facility] ALBUMIN 4.3 3.5 - 5.0 g/dL 05/27/2024 5:08 AM CDT [facility] A/G RATIO 1.8 1.0 - 2.2 05/27/2024 5:08 AM CDT [facility] CALCIUM 9.4 8.7 - 10.5 mg/dL 05/27/2024 5:08 AM CDT [facility] T BILI 1.0 0.2 - 1.2 mg/dL 05/27/2024 5:08 AM CDT [facility] SGOT (AST) 28 5 - 34 U/L 05/27/2024 5:08 AM CDT [facility] SGPT (ALT) 65(H) 0 - 55 U/L 05/27/2024 5:08 AM CDT [facility] ALKALINE PHOSPHATASE 78 40 - 150 U/L 05/27/2024 5:08 AM CDT [facility] GFR, ESTIMATED >60 >=60 05/27/2024 5:08 AM CDT [facility] Comment: Creatinine Clearance is the preferred criteria for selecting drug dose adjustments in renally impaired patients. The GFR is provided as additional pertinent clinical information. GFR is reported in mL/min/1.73 sq m. Calculation based on the Chronic Kidney Disease Epidemiology Collaboration (CKD- EPI) equation refit without adjustment for race. GFR, EST. >60 >=60 024 5:08 AM CDT [facility] GFR, EST. NONAFRICAN >60 >=60 05/27/2024 5:08 AM CDT [facility] Blood Venipuncture / Unknown 05/27/2024 4:07 AM CDT 05/27/2024 4:42 AM CDT us Merlyn Leo CRITICAL CARE UNIT MANAGER, DATA CONTROL CLERK CHEMISTRY ORDERABLES Final Result [facility] [address] [place] [address] * (ABNORMAL) Hemoglobin A1C w/ Estimated Glucose (05/26/2024 9:20 AM CDT) HGB-A1C 10.2(H) 4.0 - 6.0 % 05/26/2024 1:30 PM CDT [facility] Est Average Glucose 246.0 mg/dL 05/26/2024 1:30 PM CDT [facility] Blood Venipuncture / Unknown 05/26/2024 9:20 AM CDT 05/26/2024 9:39 AM CDT Narrative [facility] - 05/26/2024 1:30 PM CDT HEMOGLOBIN A1C: DIABETIC PATIENTS: WELL-CONTROLLED: 6.2 - 7.0 INTERMEDIATE WELL-CONTROLLED: 7.0 - 9.0 POORLY-CONTROLLED: >9.0 Bishop Mobley MD CHEMISTRY ORDERABLES Final Res ult [facility] [address] [place] [address] from Last 3 Months or Most Recently Relevant to Health Maintenance Additional Health Concerns Infection Onset Date Last Indicated 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 PRE-ARREST: Use entire range of life support measures to stabilize the patient. Care Teams Cloth Hand Relationship Specialty Start Date End Date Jessica Loera APRN, DATA CONTROL CLERK [address] [address] PCP - General Advanced Practice Nurse 09/18/23 Marleen Reed APRN, HYDRAULIC PRESS TENDER [address] [place] [address] Nurse Practitioner Advanced Practice Nurse 06/04/24
--- OUTSIDE RECORDS SUMMARY | 2025-05-31 10:22 | XMS_ITS | Patient Health Record ---
Author Organization [facility] Address [address] [facility] [address] [place] [address] Care Team Providers Care Director Of Vendor Management Name Role Phone Merlyn Phillips Unavailable [phone] Reason For Referral No Information Medications Medication SIG (Take, Route, Frequency, Duration) Notes Start Date End Date Status Venlafaxine HCl ER 75 MG Capsule Extended Release 24 Hour Oral Active Ergocalciferol 1.25 MG (5000 0 UT) Capsule Oral Active busPIRone HCl 7.5 MG Tablet Oral Active Lisinopril 10 MG Tablet Oral Active Methylphenidate HCl ER 20 MG Tablet Extended Release Oral Acti ve Sertraline HCl 100 MG Tablet Oral Active Plan Of Treatment No Information Insurance Providers Payer Name Payer Address Payer Phone Subscriber Number Group Number Insured Name Patient Relationship to Insured Coverage Start Date Coverage End Date [facility] [address] [place] [address] [id number] MANJULA MUKHERJEE Self - patient is the insured
[2025-05-31 10:26] VITALS: BP 149/94; PULSE 89; RESP 20; TEMP 37.1; O2SAT 100
--- NOTE | 2025-05-31 10:41 | ED.EXTPRO ---
HPI - Extremity Problem General Chief complaint: Extremity Problem,Nontraumatic Stated complaint: Left Elbow Pain Time Seen by Provider: 05/31/25 10:43 Source: patient and RN notes reviewed Mode of arrival: ambulatory Limitations: no limitations History of Present Illness HPI Narrative: 35-year-old male presents with concern for left elbow pain. Reports pain has been going about a week. He denies injury or trauma. 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 He has not taken any medication or any other intervention for his pain. He denies decreased strength, sensation, range of motion elbow lower distal extremity MD Complaint: extremity pain Related Data Home Medications ?Medication ?Instructions ?Recorded ?Confirmed ?Last Taken ?Type lisinopril 5 mg tablet 5 mg PO DAILY 08/08/23 03/18/24 Unknown History aspirin 81 mg tablet,delayed mg 12/12/24 Unknown History release Allergies Allergy/AdvReac Type Severity Reaction Status Date / Time No Known Allergies Allergy Unknown Verified 05/31/25 10:28 Review of Systems Review of Systems: CONSTITUTIONAL: Denies malaise, chills, sweats, or fever. SKIN: Denies rash or itching, open skin, laceration, abrasion, redness, warmth, swelling. MUSCULOSKELETAL: Reports left elbow pain NEUROLOGIC: Denies numbness, weakness All systems reviewed & are unremarkable except as noted in HPI and below PMFSH Past Medical History Medical History Diabetes Diarrhea Hypertension No pertinent past medical history Surgical History Surgical History No pertinent past surgical history Family History Family History Mother Family history non-contributory Social History Social History Living arrangements: with family Gender identity (if verbalized by the patient): Male Comments At time of signature, agree with nursing past medical, surgical, social and family history. There is no relevant family history pertinent to the presenting complaint Exam Narrative: GENERAL: Well-appearing, well-nourished, and in no acute distress. HEAD: Normocephalic, atraumatic. EYES: PERRLA, conjunctivae clear NECK: Supple. CHEST: Speaks in full sentences. No respiratory distress. HEART: Regular rate and rhythm. Normal and equal peripheral pulses. EXTREMITIES: Left upper extremity has grossly normal strength and sensation, grossly normal range of motion. No edema or ecchymosis. Normal sensation with sensitivity to light touch and pain. No point tenderness. No open wounds, no skin tenting, no devitalized tissue or atrophy, no trophic changes, no obvious deformity, alignment normal, nearby joints and structures intact. Distal pulses palpable and equal bilaterally, skin warm, dry, pink. Capillary refill less than 3 seconds. SKIN: Warm, dry, no rash. NEURO: Alert and oriented x3. PSYCH: Normal mood and affect Course Course Emergency Course: Patient is aware of diagnosis, understands and agrees to treatment plan. Anticipatory guidance given. Patient agrees to follow-up as directed and is aware of reasons to seek care at the emergency department. Portions of this record may have been created with voice recognition software Level of Care: Express Care Visit Vital Signs Vital signs: Vital Signs Temperature 98.7 F 05/31/25 10:26 Pulse Rate 89 05/31/25 10:26 Respiratory Rate 20 05/31/25 10:26 Blood Pressure 149/94 H 05/31/25 10:26 Pulse Oximetry 100 05/31/25 10:26 Oxygen Delivery Room Air 05/31/25 10:26 Temperature 98.7 F 05/31/25 10:26 Pulse Rate 89 05/31/25 10:26 Respiratory Rate 20 05/31/25 10:26 Blood Pressure 149/94 H 05/31/25 10:26 Pulse Oximetry 100 05/31/25 10:26 Oxygen Delivery Room Air 05/31/25 10:26 Reviewed. MDM - Extremity (Nontraumatic) MDM Narrative Medical decision making narrative: Patients pain is consistent with musculoskeletal etiology. No signs of neurological or vascular compromise on exam. Compartments and tissues are soft without signs of compartment syndrome. Pain is felt appropriate for further evaluation on an outpatient basis. Imaging Data My impression: Images reviewed, interpreted by radiologist, agree, see report. Radiologist's impression: XR elbow LT min 3V 05/31/2025 10:41 INDICATION: Left elbow pain PROCEDURE: 4 views left elbow COMPARISON: No prior studies for comparison. FINDINGS: Fracture, dislocation or subluxation is not identified. The soft tissues appear within normal limits. No foreign bodies are identified. IMPRESSION: 1: NO ACUTE BONE OR JOINT ABNORMALITY IDENTIFIED. Critical Care Time Critical Care Time Critical Care Time: No Discharge Plan Discharge Clinical Impression: Elbow pain, left Patient Disposition: Home Condition: Stable Instructions: Elbow Strain (ED) Additional Instructions: Avoid activities that cause pain until the pain subsides. Ice to the area 20-30 minutes 4-6 times a day Elevate above heart Elastic wrap or orthopedic splint as directed for comfort for the next 5-7 days Tylenol for lesser pain Ibuprofen regularly for the next 2-3 days for the inflammation Follow up with your primary care provider if the condition is not improving within 1 week. If the condition worsens with numbness, tingling, decrease sensation with weakness seek treatment in the emergency room immediately. Patient Language: Bhutanese Prescriptions: No Action aspirin 81 mg tablet,delayed release (DR/EC) lisinopril 5 mg tablet 5 mg PO DAILY Follow-up/Referrals: UNKNOWN,DOCTOR [Primary Care Provider] Time of Disposition: 10:51
== END 2025-05-31 11:01 | disposition home or self-care (01) ==
PROVIDERS: Emergency Provider Nurse Practitioner
DX: M25.522 Pain in left elbow (principal); E11.9 Type 2 diabetes mellitus without complications; I10 Essential (primary) hypertension; Z79.82 Long term (current) use of aspirin
CPT/HCPCS: 73080; 99213; G0463

== ENCOUNTER 2025-08-28 11:49 | Emergency (ER) | payer OTHER, SELFPAY ==
[2025-08-28 11:52] VITALS: BP 133/86; PULSE 89; RESP 20; TEMP 36.3; O2SAT 99
--- OUTSIDE RECORDS SUMMARY | 2025-08-28 11:52 | XMS_ITS | Clinical Summary ---
Author Organization [facility] Address [address] [place] [address] Phone Care Team Providers Care Sales Support Assistant Name Role Phone Jessica Loera APRN, GERIATRIC SOCIAL WORKER Primary Care Provider Marleen Reed APRN, SPED TEACHER Unavailable [phone] Allergies No known active allergies Medications Blood [...] Date CVA (cerebral vascular accident) 05/26/2024 05/27/2024 Immunizations Immunization Administration Dates Next Due RABIES [...] drink = 0.6 oz pur e alcohol) [facility] Utilities Answer Date Recorded In the past [...] any time in the past 12 m [facility], were you homeless or living in a [facility] (including now)? No 05/26/2024 Sex and Gender [...] 1989 Hepatitis C Virus (HCV) Screening 1989 Varicella Immunization (1 of 2 - 13+ 2-dose series) 2002 Hepatitis B Immunization (1 of 3 - 19+ 3-dose series) 01/21/2008 Pneumococcal Immunization Combined (1 of 2 - PCV) 01/21/2008 Human Papillomavirus (HPV) Immunization (1 - 3-dose SCDM series) 01/21/2016 Diabetes: Hemoglobin A1c 04/28/2025 025, 10/23/2024, 05/26/2024, Additional history exists Diabetes: Nephropathy Screening 05/27/2025 05/27/2024, 09/18/2023, 03/06/2023 Influenza Immunization (#1) 2025 12/19/2021, 1 SARS-COV-2 Immunization ( season) 2025 Respiratory Syncytial Virus (RSV) Immunization (Adult) (1 [...] - 145 mmol/L 05/27/2024 5:08 AM CDT [facility] POTASSIUM 3.6 3.5 - 5.1 mmol/L 05/27/2024 5:08 AM CDT [facility] CHLORIDE 102 98 - 107 mmol/L 05/27/2024 5:08 AM CDT [facility] CO2, VENOUS 24 22 - 30 mmol/L 05/27/2024 5:08 AM CDT [facility] ANION GAP 13.6 <18.0 mmol/L 05/27/2024 5:08 AM CDT [facility] GLUCOSE 258(H) 70 - 99 mg/dL 05/27/2024 5:08 AM CDT [facility] BUN 18 9 - 21 mg/dL 05/27/2024 5:08 AM CDT [facility] CREATININE, BLOOD 0.86 0.70 - 1.30 mg/dL 05/27/2024 5:08 AM CDT [facility] BUN/CREATININE RATIO 21(H) 12 - 20 ratio 05/27/2024 5:08 AM CDT [facility] TOTAL PROTEIN 6.7 6.3 - 8.2 g/dL 05/27/2024 5:08 AM CDT [facility] ALBUMIN 4.3 3.5 - 5.0 g/dL 05/27/2024 5:08 AM CDT [facility] A/G RATIO 1.8 1.0 - 2.2 05/27/2024 5:08 AM CDT [facility] CALCIUM 9.4 8.7 - 10.5 mg/dL 05/27/2024 5:08 AM CDT [facility] T BILI 1.0 0.2 - 1.2 mg/dL 05/27/2024 5:08 AM CDT [facility] SGOT (AST) 28 5 - 34 U/L 05/27/2024 5:08 AM CDT [facility] SGPT (ALT) 65(H) 0 - 55 U/L 05/27/2024 5:08 AM CDT [facility] ALKALINE PHOSPHATASE 78 40 - 150 U/L 05/27/2024 5:08 AM CDT [facility] GFR, ESTIMATED >60 >=60 05/27/2024 5:08 AM CDT [facility] Comment: Creatinine Clearance is the preferred criteria for selecting drug dose adjustments in renally impaired patients. The GFR is provided as additional pertinent clinical information. GFR is reported in mL/min/1.73 sq m. Calculation based on the Chronic Kidney Disease Epidemiology Collaboration (CKD- EPI) equation refit without adjustment for race. GFR, EST. >60 >=60 024 5:08 AM CDT [facility] GFR, EST. NONAFRICAN >60 >=60 05/27/2024 5:08 AM CDT [facility] Blood Venipuncture / Unknown 05/27/2024 4:07 AM CDT 05/27/2024 4:42 AM CDT us Merlyn Leo [employer]ER [employer] SUPERVISOR, GERIATRIC SOCIAL WORKER CHEMISTRY ORDERABLES Final Result [facility] [address] [place] [address] * (ABNORMAL) Hemoglobin A1C w/ Estimated Glucose (05/26/2024 9:20 AM CDT) HGB-A1C 10.2(H) 4.0 - 6.0 % 05/26/2024 1:30 PM CDT [facility] Est Average Glucose 246.0 mg/dL 05/26/2024 1:30 PM CDT [facility] Blood Venipuncture / Unknown 05/26/2024 9:20 AM CDT 05/26/2024 9:39 AM CDT Narrative [facility] - 05/26/2024 1:30 PM CDT HEMOGLOBIN A1C: DIABETIC PATIENTS: WELL-CONTROLLED: 6.2 - 7.0 INTERMEDIATE WELL-CONTROLLED: 7.0 - 9.0 POORLY-CONTROLLED: >9.0 Bishop Mobley MD CHEMISTRY ORDERABLES Final Res ult [facility] [address] [place] [address] from Last 3 Months or Most Recently Relevant to Health Maintenance Additional Health Concerns Infection Onset Date 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 PRE-ARREST: Use entire range of life support measures to stabilize the patient. Care Teams Sales Support Assistant Relationship Specialty Start Date End Date Jessica Loera APRN, GERIATRIC SOCIAL WORKER [address] [address] PCP - General Advanced Practice Nurse 09/18/23 Marleen Reed APRN, SPED TEACHER [address] [place] [address] Nurse Practitioner Advanced Practice Nurse 06/04/24
--- OUTSIDE RECORDS SUMMARY | 2025-08-28 11:52 | XMS_ITS | Data Portability ---
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 Plan of Treatment Reminders Order Date Submit Date Provider Last Modified By Organization Details Last Modified Time Details Appointments None recorded . Lab vitamin D, 25-hydro xy, total, serum 2015 016 [facility], [address] [place] [address], [address], [place], [address], 6 11:13:56 CMP, serum or plasma 2015 016 [facility], [address] [place] [address], [address], [place], [address], 6 11:13:56 hepatiti s (A+B+C) panel, serum 2015 016 [facility], [address] [place] [address], [address], [place], [address], 6 11:13:55 lipid panel, serum 2015 016 [facility], [address] [place] [address], [address], [place], [address], 6 11:13:56 TSH, serum or plasma 2015 016 [facility], [address] [place] [address], [address], [place], [address], 6 11:13:55 lipid panel, serum 2014 015 [facility], [address] [facility], [address], [place], [address], 5 06:26:31 TSH, serum or plasma 2014 015 [facility], [address] [facility], [address], [place], [address], 5 06:26:32 vitamin D, 25-hydro xy, total, serum 2014 015 [facility], [address] [place] [address], [address], [place], [address], 5 06:26:32 CMP, serum or plasma 2014 015 [facility], [address] [place] [address], [address], [place], [address], 5 06:26:30 Referral orthoped ic referral 2015 016 kapil Dumont MD, 4 [facility], [address], [address], 6 12:27:20 psychiat rist referral 2014 015 azul Klein MD, [address] [place] [address], [address], 5 14:06:54 Procedures None recorded . Surgeries None recorded . Imaging None recorded . Medication Orders lisinopr il 10 mg tablet 2015 016 [facility], [address] [facility], [place], [address], 6 14:54:18 hydrocod one 5 mg-aceta minophen 325 mg tablet 2015 016 [facility], [address] [place], [address], 6 14:58:46 ibuprofe n 400 mg tablet 2015 016 [facility], [address] [place], [address], 6 14:54:18 venlafax ine 50 mg tablet 2015 016 [facility], [address] [place], [address], 6 14:32:37 lisinopr il 10 mg tablet [address] [facility], [address], [place], [place], [id number], 5 12:32:06 sertrali ne 50 mg tablet [address] [facility]31684, [address], [place], [place], [id number], 6 14:32:57 Patient TargetsNo targets recorded. Patient Instructions Encounter Date Encounter Id Patient Instructions Last Modified By Organization Details Last Modified Time 05/19/2015 [id number] When You Want to Lose Weight: Care Instructions ssuthan Not available 05/19/2015 12:32:06 learning about high blood pressure ssuthan Not available 05/19/2015 12:32:06 learning about mood disorders ssuthan Not available 05/19/2015 12:32:06 12/08/2015 [id number] influenza (flu) vaccine: care instructions [email or web address] Not available 12/08/2015 14:42:24 When You Want to Lose Weight: Care Instructions [email or web address] Not available 12/08/2015 14:42:25 varicocele repair: before your surgery sssamia Not available 12/08/2015 14:32:37 anxiety disorder: care instructions [email or web address] Not available 12/08/2015 14:42:24 learning about high blood pressure zyoungblood Not available 12/08/2015 14:42:24 01/03/2016 [id number] learning about high blood pressure [facility]blood Not available 01/03/2016 14:58:46 Reason for Referral Psychiatrist Referral for Mo od disorder Referring Physician: Kamron Hernandez, Internal Medicine, Encounter Date: 05/19/2015 Orthopedic Referral for Frac ture of navicular Referring Physician: Kamron Hernandez, Internal Medicine, Encounter Date: 01/03/2016 Results Created Date Observation Date Name Description Value Unit Range Abnormal Flag Note LastModifiedBy Organization Detail LastModifiedTime 07/12/20 15 07/13/2015 CMP, serum or plasm a glucose, serum 137 mg/dL 65-99 above high normal Not Available [facility] ([facility]) [address] [place], [address], 07/13/2015 06:26:30 07/12/20 15 07/13/2015 CMP, serum or plasm a BUN 18 mg/dL 6-20 Not Available [facility] ([facility]) [address] [place], [address], 07/13/2015 06:26:30 07/12/2007/13/2015 CMP, serum or plasm a creatinine, serum 0.92 mg/dL 0.76-1 .27 Not Available [facility] ([facility]) [address] [place], [address], 07/13/2015 06:26:30 07/12/20 15 07/13/2015 CMP, serum or plasm a eGFR if nonafricn AM 114 mL/mi n/1.7 3 >59 Not Available [facility] ([facility]) [address] [place], [address], 07/13/2015 06:26:30 07/12/20 15 07/13/2015 CMP, serum or plasm a eGFR if africn AM 132 mL/mi n/1.7 3 >59 Not Available [facility] ([facility]) [address] [facility] [place], [address], 07/13/2015 06:26:30 07/12/20 15 07/13/2015 CMP, serum or plasm a BUN/creatini ne ratio 20 8-19 above high normal Not Available [facility] ([facility]) [address] [facility] [place], [address], 07/13/2015 06:26:30 07/12/20 15 07/13/2015 CMP, serum or plasm a sodium, serum 137 mmol/ L 134-14 4 Not Available [facility] ([facility]) [address] [place], [address], 07/13/2015 06:26:30 07/12/20 15 07/13/2015 CMP, serum or plasm a potassium, serum 4.1 mmol/ L 3.5-5. 2 Not Available [facility] ([facility]) [address] [facility] [place], [address], 07/13/2015 06:26:30 07/12/20 15 07/13/2015 CMP, serum or plasm a chloride, serum 96 mmol/ L 97-108 below low normal Not Available [facility] ([facility]) [address] [place], [address], 07/13/2015 06:26:30 07/12/20 15 07/13/2015 CMP, serum or plasm a carbon dioxide, total 24 mmol/ L 18-29 Not Available [facility] ([facility]) [address] [place] [address], [address], 07/13/2015 06:26:30 07/12/20 15 07/13/2015 CMP, serum or plasm a calcium, serum 9.4 mg/dL 8.7-10 .2 Not Available [facility] ([facility]) [address] [facility], [place], [address], 07/13/2015 06:26:30 07/12/2007/13/2015 CMP, serum or plasm a protein, total, serum 7.0 g/dL 6.0-8. 5 Not Available [facility] ([facility]) [address] [facility] [place], [address], 07/13/2015 06:26:30 07/12/2007/13/2015 CMP, serum or plasm a albumin, serum 4.8 g/dL 3.5-5. 5 Not Available [facility] ([facility]) [address] [facility], [place], [address], 07/13/2015 06:26:30 07/12/20 15 07/13/2015 CMP, serum or plasm a globulin, total 2.2 g/dL 1.5-4. 5 Not Available [facility] ([facility]) [address] [facility], [place], [address], 07/13/2015 06:26:30 07/12/2007/13/2015 CMP, serum or plasm a A/G ratio 2.2 1.1-2. 5 Not Available [facility] ([facility]) [address] [facility], [place], [address], 07/13/2015 06:26:30 07/12/2007/13/2015 CMP, serum or plasm a bilirubin, total 0.5 mg/dL 0.0-1. 2 Not Available [facility] ([facility]) [address] [facility] [place], [address], 07/13/2015 06:26:30 07/12/20 15 07/13/2015 CMP, serum or plasm a alkaline phosphatase, S 65 IU/L 39-117 Not Available [facility] ([facility]) [address] [facility] [place], [address], 07/13/2015 06:26:30 07/12/2007/13/2015 CMP, serum or plasm a AST (SGOT) 27 IU/L 0-40 Not Available [facility] ([facility]) [address] [facility] [place], [address], 07/13/2015 06:26:30 07/12/20 15 07/13/2015 CMP, serum or plasm a ALT (SGPT) 69 IU/L 0-44 above high normal Not Available [facility] ([facility]) [address] [place] [address], [place], [address], 07/13/2015 06:26:30 07/12/2007/13/2015 lipid panel , serum cholesterol, total 228 mg/dL 100-19 9 above high normal Not Available [facility] ([facility]) [address] [facility], [place], [address], 07/13/2015 06:26:31 07/12/2007/13/2015 lipid panel , serum triglyceride s 225 mg/dL 0-149 above high normal Not Available [facility] ([facility]) [address] [facility] [place], [address], 07/13/2015 06:26:31 07/12/2007/13/2015 lipid panel , serum HDL cholesterol 31 mg/dL >39 below low normal ACCOR DING TO ATP-I II GUIDE LINES , HDL-C >59 MG/DL IS CONSI DERED A NEGAT YESENIA RISK FACTO R FOR CHD. Not Available [facility] ([facility]) [address] [facility], [place], [address], 07/13/2015 06:26:31 07/12/2007/13/2015 lipid panel , serum VLDL cholesterol mariano 45 mg/dL 5-40 above high normal Not Available [facility] ([facility]) [address] [place] [address], [place], [address], 07/13/2015 06:26:31 07/12/2007/13/2015 lipid panel , serum LDL cholesterol calc 152 mg/dL 0-99 above high normal Not Available [facility] ([facility]) [address] [facility], [place], [address], 07/13/2015 06:26:31 07/12/20 15 07/13/2015 lipid panel , 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 6 above high normal LDL/H DL RATIO MEN WOMEN 1/2 AVG.R ISK 1.0 1.5 AVG.R ISK 3.6 3.2 2X AVG.R ISK 6.2 5.0 3X AVG.R ISK 8.0 6.1 Not Available [facility] ([facility]) [address] [facility], [place], [address], 07/13/2015 06:26:31 07/12/20 15 07/13/2015 TSH, serum or plasm a TSH 2.530 uIU/m L 0.450- 4.500 Not Available [facility] ([facility]) [address] [facility], [place], [address], 07/13/2015 06:26:32 07/12/2007/13/2015 vitam in D, 25-hy droxy , total , serum vitamin D, 25-hydroxy 29.3 NG/mL 30.0-1 00.0 below low normal VITAM IN D DEFIC IENCY HAS BEEN DEFIN ED BY THE INSTI TUTE OF MEDIC INE AND AN ENDOC RINE SOCIE TY PRACT ICE GUIDE LINE A LEVEL OF SERUM 25-OH VITAM IN D LESS THAN 20 NG/ML (1,2) . THE ENDOC RINE SOCIE TY WENT ON TO FURTH ER DEFIN E VITAM IN D INSUF FICIE NCY A LEVEL BETWE EN 21 AND 29 NG/ML (2). 1. IOM (INST ITUTE OF MEDIC INE). 2010. DIETA RY REFER ENCE INTAK ES FOR CALCI UM AND D. OSMIN HAWKINS DC: [facility] . 2. NUBIA Chavez MF, MARK ANDREW NC, MICHELLE OFF-F ERRAR I KRUEGER, ET AL. EVALU ATION , TREAT MENT, AND PREVE NTION OF VITAM IN D DEFIC IENCY : AN ENDOC RINE SOCIE TY CLINI MARIANO PRACT ICE GUIDE LINE. JCEM. 2010; 96(7) :1911 -30. 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 TEST # [id number] HEPAT ITIS PANEL (4) Not Available [facility] ([facility]) [address] [place], [address], 07/14/2015 09:56:02 Result Notes None recorded. Problems Name Problem SNOMED Code Status Onset Date Resolution Date Notes Provider Name and Address Organization Details Recorded Time Hypertensive disorder 55547907 Active EVANS Can null, [place] - [facility] 6 13:54:05 Essential hypertension 10784948 Active Kamron Hernandez MD Attn: Accounting, [address] [facility], [place], [address], [place] [facility] 6 14:54:17 Mood disorder 73242516 Active EV[place] [facility] 6 13:54:05 Overweight 214394669 Active Angelica Benitez RMA [place], [place] [facility] 6 13:54:05 Alanine aminotransfe rase above reference range 810108207 Active Angelica Benitez R[place] [facility] 6 13:54:05 Generalized anxiety disorder 61829096 Active Angelica Benitez, R[place] [facility] 6 13:54:05 Varicocele 54974268 Active Angelica Benitez, R[place] [facility] 6 13:54:05 Hypercholest erolemia 38505272 Active Angelica Benitez R[place] [facility] 6 13:54:05 Fracture of navicular 386880336 Active Kamron Hernandez MD Attn: Accounting, [address] [place], [address], [place] [facility] 6 14:54:17 Problem Notes None recorded. Medical Equipment None Reported. Allergies No known drug allergies Medications Name Sig Start Date Stop Date Status Note LastModified by Organization Details LastModified Time hydrocodone 5 mg-acetaminop hen 325 mg tablet Take 1 tablet(s )1-2 times only for severe pain 016 active Not Available Not Available Not Avai lable tramadol 50 mg tablet active Not Available Not Available No t Available butalbital-ac etaminophen-c affeine 50 mg-325 mg-40 mg tablet active Not Available Not Available No t Available lisinopril 10 mg tablet TAKE ONE TABLET BY MOUTH DAILY 016 active Not Available Not Available Not Avai lable ibuprofen 400 mg tablet Take 1 tablet twice a day by oral route after meals. 016 active Not Available Not Available Not Avai lable venlafaxine 50 mg tablet Take 1 tablet twice a day by oral route. 016 active Not Available Not Available Not Avai lable ibuprofen 600 mg tablet active Not Available Not Available No t Available sertraline 50 mg tablet TAKE ONE TABLET BY MOUTH DAILY active Not Available Not Available No t Available Vitals Date Recorded Body height Body weight Body temperature Respiratory rate Body mass index (BMI) Heart rate Systolic And Diastolic Provider Name and Address Organization Details Last Updated DateTime 6 172.72 cm 234450. 556845 g 98.3 [degF] 14 /min 38.5 kg/m2 84 /min 146/104 mm[Hg] [facility] 6 14:04:09 Date Recorded Body height Body temperature Respiratory rate Heart rate Systolic And Diastolic Provider Name and Address Organization Details Last Updated DateTime 6 172.72 cm 98.3 [degF] 14 /min 80 /min 124/84 mm[Hg] [facility] 6 13:58:02 Date Recorded Respiratory rate Body weight Heart rate Body mass index (BMI) Body height Systolic And Diastolic Provider Name and Address Organization Details Last Updated DateTime 5 16 /min 186506. 975569 g 78 /min 37.6 kg/m2 172.72 cm 126/96 mm[Hg] Aneglica [facility] 5 11:42:47 Date Recorded Heart rate Systolic And Diastolic Provider Name and Address Organization Details Last Updated DateTime 07/12/2015 76 /min 125/82 mm[Hg] Jovanna Boateng RN [facility] 07/12/2015 10:12:55 Social History None recorded. Functional Status None recorded. Mental Status None recorded. Family History Relationship Description Onset Age of this Age Resolved Age Notes LastModified by Organization Details LastModified Time Mother Hypertensive disorder ssuthan Not available 2015 14:03:50 Mother Hypercholest erolemia ssuthan Not available 2015 14:03:50 Mother Migraine ssuthan Not available 01/03/2016 14:03:50 Mother Crohn's disease ssuthan Not available 2015 14:03:50 Father Hypertensive disorder ssuthan Not available 2015 14:03:50 Father Myocardial infarction ssuthan Not available 01/02 14:03:50 Father CVA - cerebrovascu lar accident due to cerebral artery occlusion ssuthan Not available 2015 14:03:50 Father Hypercholest erolemia ssuthan Not available 2015 14:03:50 Sister Diabetes mellitus ssuthan Not available 2015 14:03:50 Sister Essential hypertension ssuthan Not available 14:03:50 Medical History Condition Response Other Y High Blood Pressure Y Immunizations Vaccine Type Date Status Note Provider Nam e and Address Organization Details Recorded Time Influenza, split virus, quadrivalent, preservative 6 completed Not Available [facility] 10/25/2019 02:44:47 Td (adult), 5 Lf tetanus toxoid, preservative free, adsorbed 6 completed Not Available [facility] 10/25/2019 02:48:29 Past Encounters Encounter ID Performer Location Encounter Start Date Encounter Closed Date Diagnosis/Indication Diagnosis SNOMED-CT Code Diagnosis ICD10 Code Diagnosis IMO Codes Diagnosis Note [id number] MD Nic Vasquez ([facility]am [facility]) [address] [place] [address] 05/19/2015 11:06:11 05/19/2015 13:05:35 Essential hypertension 28983260 Will start back on lisinopril 10mg daily. recheck BP in 2 wks. Low salt diet. Mood disorder 23929368 Was diagnosed with bipolar in the past. empiricall y start on sertraline and refer to Psychiatri st for more specific Rx. Pt aware if weird dream/suic idal thoughts to stop and call the office. Overweight 271105194 Recom mend to loose weight with diet control and exercise. [id number] MD Nic Vasquez ([facility]am [facility]) [address] [place] [address] 12/08/2015 13:27:07 12/08/2015 14:49:37 Essential hypertension 68326890 I10 Will start back on lisinopril 10mg daily. recheck BP in 2 wks. Low salt diet. ran out medication for a month! Generalize d anxiety disorder 52453412 F41.1 Empiricall y try venlafaxix e. To stop and call office for weird dream/suic idal thoughts. Varicocele 96060584 I86. 1 Per the pt after u/s, Feeling better. Administra tion of influenza vaccine 92888484 Z23 No issues before. Administra tion of tetanus vaccine 297881888 Z23 Overweight 575324946 E66 .3 Recommend to loose weight with diet control and exercise. Hypercholesterolemia 136 23128 E78.2 TC 228, LDL 152, TG 225 Recommende d lo cholestero l diet. [id number] Kamron Hernandez MD [place] ([facility]) [address] [place] [address] 01/03/2016 13:25:51 01/03/2016 15:08:59 Fracture of navicular 711842727 S92.255A L/ankle, s/p fall from tree. Refer to ortho MD Arteaga vicodin and ibuprofen given Do not put on weight. Essential hypertension 23560385 I10 Controlled . Ct same with low salt diet Health Concerns Section Related Observation LastModified by Organization Detai ls LastModified Time None Recorded Concern Status LastModified by Organization Details LastModified Time None Recorded Advance Directives Directive None Recorded Payers Insurance Date Sequence Insurance Name Policy Number Policy Lewis Covered Member ID Lewis Member ID Guarantor Name 08/26/2014 1 [place] José Manuel Hilario [id number] José Manuel Hilario 01/21/2024 1 [facility] (MEDICAID HMO) [id number] José Manuel Hilario [id number] José Manuel Hilario Notes Date Note Type Note Provider Name and Address Organization Details Recorded Time 5 text/html Hypertension F/UReported by PatientHPIFor associated symptoms, patient reportsno dizzinessandno lightheadedness. For lifestyle, patient reportsregular exercise. For medications, patient reportstaking medications as directed.Diagnosed few yrs ago, not taking lisinopril as prescribed in the past. Generic HPI TemplateReported by PatientHere to establish care as a new pt. Moved from [place], [place] about 2 yrs ago. c/o headache on & off , went ER , was asked to f/u for his HTN. Anxiety/DepressionRepor belinda by PatientHPIFor quality, patient reportssymptoms worse during the day. For associated symptoms, patient reportsemotional lability,anxiety,loneli ness,sleep disturbances,social withdrawal, andheadaches. For severity, patient reportsdenies suicidal ideationsandable to maintain relationships. For onset/timing, patient reportsgradual. For duration, (was on medication 5 yrs ago, weaned himself off).Diagnosed before with bipolar disorder and ADHD. Kamron Hernandez MD Attn: Accounting,[address] [facility], [place], [address], [facility] 05/19/2015 12:32:19 6 text/html Hypertension F/UReported by PatientHPIFor associated symptoms, patient reportsno dizziness. For lifestyle, patient reportsregular exercise. For medications, patient reportstaking medications as directedandno side effects from medication. Generic HPI TemplateReported by PatientHere after 5 months.Was recently evaluated at ER for L/side tescular discomfort- had u/s was told 'having varicose veins- due to prolong standing, if bothersome need surgery'Pt does feel better now. Anxiety/DepressionRepor belinda by PatientHPIFor quality, patient reportssymptoms worse in the eveningandsymptoms worse during the day(cannot tolerate sertraline). For severity, patient reportsdenies suicidal ideations.wants something to 'mellow out'was on addreall when he was young Kamron Hernandez MD Attn: Accounting,[address] [facility], [place], [address], [facility] 12/08/2015 14:32:58 6 text/html Generic HPI TemplateReported by Patienth/o fall from tree 3 days ago from a height of 10 feet. Went [facility]ROS as noted in the HPI Kamron Hernandez MD Attn: Accounting,[address] [facility], [place], [address], [facility] 01/03/2016 14:54:26
--- OUTSIDE RECORDS SUMMARY | 2025-08-28 11:52 | XMS_ITS | Clinical Summary ---
Author Organization [facility] Address [address] [place] [address] Care Team Providers Care Lifeline Representatives Name Role Phone José Manuel Werner MD Unavailable [phone] Leandro Slater MD Primary Care Provider + Allergies No known active allergies Medications blood-glucose meter kitIndications:Type 2 diabetes mellitus with hyperglycemia, with long-term current use of insulin ([facility]) 1 Device daily 1 kit 3 Active blood glucose diagnostic stripIndications:Ty pe 2 diabetes mellitus with hyperglycemia, with long-term current use of insulin (HCC) Use one strip to monitor home blood sugars daily. 100 each 3 Active lancets 31 gauge miscIndications:Typ e 2 diabetes mellitus with hyperglycemia, with long-term current use of insulin (HCC) 1 Device daily 100 each 3 Active blood-glucose meter,continuous (Dexcom G7 Supervisor Purification) misc Use as directed. 1 each 4 Active lamoTRIgine XR (LaMICtal XR) 50 mg tablet extended release 24hr Take 1 tablet (50 mg total) by mouth daily 30 tablet 1 4 Active pen needle, diabetic (Pen Needle) 32 gauge x 32 needleIndications:T ype 2 diabetes mellitus with hyperglycemia, with long-term current use of insulin ([facility]) Use as directed once a day. 100 each 4 Active glipiZIDE (GLUCOTROL) 5 mg tabletIndications:T ype 2 diabetes mellitus with hyperglycemia, with long-term current use of insulin ([facility]) Take 1 tablet (5 mg total) by mouth 2 (two) times a day before breakfast and lunch 180 tablet 1 4 Active blood-glucose sensor (Dexcom G7 Sensor) device Use as directed. Change sensor every 10 days. 3 each 5 Active aspirin 81 mg enteric coated tabletIndications:H emiparesis affecting left side as late effect of cerebrovascular accident (CVA) ([facility]) Take 1 tablet (81 mg total) by mouth daily 30 tablet 11 5 026 Active lisinopriL (PRINIVIL,ZESTRIL) 20 mg tabletIndications:T ype 2 diabetes mellitus with hyperglycemia, with long-term current use of insulin ([facility]),Primary hypertension Take 1 tablet (20 mg total) by mouth daily 90 tablet 3 5 026 Active omeprazole (PriLOSEC) 40 mg capsuleIndications: Gastroesophageal reflux disease without esophagitis Take 1 capsule (40 mg total) by mouth daily 90 capsule 1 5 026 Active ondansetron ODT (ZOFRAN-ODT) 4 mg disintegrating tablet Take 1 tablet (4 mg total) by mouth every 8 (eight) hours as needed for nausea or vomiting 20 tablet 5 Active dulaglutide (TRULICITY) 0.75 mg/0.5 mL pen injector Inject 0.5 mL (0.75 mg total) under the skin every 7 days 2 mL 6 5 Active sertraline (ZOLOFT) 100 mg tabletIndications:D epression, recurrent Take 2 tablets (200 mg total) by mouth daily 90 tablet 5 026 Active insulin glargine 100 unit/mL (3 mL) pen for injection Inject 30 units under the skin once daily 30 mL 3 5 Active metFORMIN XR (GLUCOPHAGE XR) 500 mg 24 hr tabletIndications:T ype 2 diabetes mellitus with hyperglycemia, with long-term current use of insulin ([facility]) Take 2 tablets (1,000 mg total) by mouth daily with breakfast 60 tablet 5 Active atorvastatin (LIPITOR) 40 mg tabletIndications:H emiparesis affecting left side as late effect of cerebrovascular accident (CVA) (HCC),Hyperlipidemi a associated with type 2 diabetes mellitus (HCC) Take 1 tablet (40 mg total) by mouth daily 90 tablet 1 5 026 Active clopidogreL (PLAVIX) 75 mg tabletIndications:H emiparesis affecting left side as late effect of cerebrovascular accident (CVA) (HCC) Take 1 tablet (75 mg total) by mouth daily For 21 days 30 tablet 5 5 026 Active Active Problems Problem Noted Date Diagnosed Date Fatty liver 01/21/2025 Depression, recurrent 10/29/2024 Assessment & Plan (10/29/2024 3:24 PM STAKEHOLDER MANAGER): Chronic, stable, increased anxiety and agitation. Patient [...] 10/23/2024 Assessment & Plan (10/29/2024 3:35 PM STAKEHOLDER MANAGER): Body mass index is 40.1 kg/m . [...] cerebrovascular accident (CVA) 06/29/2024 Assessment & Plan (06/15/2025 6:19 PM CDT): Needs refills on meds. Orders: atorvastatin (LIPITOR) 40 mg tablet; Take 1 tablet (40 mg total) by mouth daily clopidogreL (PLAVIX) 75 mg tablet; Take 1 tablet (75 mg total) by mouth daily For 21 days Assessment & Plan (10/29/2024 3:21 PM STAKEHOLDER MANAGER): CVA 3m ago treated at [facility] Symptoms: Talking, L side strength [...] Patient encouraged to get an appointment with fuel operator to have a regular dilated eye exam-patient [...] 04/08/2023 Assessment & Plan (10/29/2024 3:20 PM STAKEHOLDER MANAGER): Pt presents for Annual Health exam: Today [...] diabetes osman agosto 04/02/2023 Assessment & Plan (06/15/2025 6:19 PM CDT): Continue statin therapy. Hx of CVA. Will need to be on indefinitely, pt expressed his understanding. Orders: Lipid panel; Future atorvastatin (LIPITOR) 40 mg tablet; Take 1 tablet (40 mg total) by mouth daily Assessment & Plan (10/29/2024 3:28 PM STAKEHOLDER MANAGER): The ASCVD Risk score (Mary LOVETT, et [...] cancer. EXERCISE: The World Health Organization and [place] [employer] recommends all adults get a minimum of 150 minutes of moderate physical activity a week. This can be completed as 30 minutes of brisk walking on most days of the week. It can also be completed as 75 minutes twice a week for those weekend warriors. Even 10 minutes of exercise a day [...] are stable, reviewed previous lipid levels in [facility]. Continue statin therapy. Lipitor (atorvastatin) Order [...] lab work., reviewed previous lipid levels in [facility]. Pharmacotherapy as ordered. Order for lipid [...] use of insulin 12/22/2021 Assessment & Plan (06/15/2025 6:19 PM CDT): Orders: POCT hemoglobin A1c Comprehensive metabolic panel; Future metFORMIN XR (GLUCOPHAGE XR) 500 mg 24 hr tablet; Take 2 tablets (1,000 mg total) by mouth daily with breakfast Assessment & Plan (10/29/2024 3:20 PM STAKEHOLDER MANAGER): Diabetes: chronic condition. control: poor on current [...] CDT): Placed orders for diabetic education and field operations manager, diabetic testing supplies, metformin and Tresiba. Encouraged [...] Tresiba. I also referred him to a childbirth educator. Will have him follow-up in 1 [...] 10/20/2021 Assessment & Plan (10/20/2021 1:31 PM STAKEHOLDER MANAGER): Ibuprofen 800 mg q8h prn pain, fever, headaches. Vitamin D deficiency 05/23/2019 Assessment & Plan (06/04/2021 11:18 AM CDT): Due for repeat vitamin d Assessment & Plan (07/25/2020 8:45 PM CDT): Will recheck vitamin-D level Assessment & Plan (11/02/2019 8:39 PM STAKEHOLDER MANAGER): Check vitamin d level today Sinus arrhythmia 05/21/2019 Assessment & Plan (10/29/2024 3:34 PM STAKEHOLDER MANAGER): Chronic, stable No current complaints, patient not on rate control Generalized anxiety disorder 05/20/2019 Assessment & Plan (10/29/2024 3:26 PM STAKEHOLDER MANAGER): Chronic, stable, unclear if just anxiety with [...] ideations. Assessment & Plan (09/13/2021 12:33 PM STAKEHOLDER MANAGER): Labs ordered for depakote level as ordered [...] daily. Will try referral to psychiatry at [facility]. Patient was agreeable to this. Will schedule follow-up for 6 months but encouraged him to call in the interim if any problems or concerns,. Come up Assessment & Plan (01/05/2021 4:26 PM CDT): Improving. He has started counseling and will be seeing a psychiatrist [facility] Assessment & Plan (12/22/2020 2:42 PM CDT): He has discontinued the seroquel. He is asking for short term disability papers to be filled out. I repeated that he needs to see psychiatry. Will continue him on fluoxetine and fill out paperwork on word that he sees the counselor today as scheduled and then work on psychiatry appointment either at [facility] or with Dr. Werner. We also discussed his use of supplements. States he already stopped, but I confirmed that he cannot take any internet testosterone and I recommend he stop any workout supplements as they may interfere with his mood, depression and medications we're trying to treat him with. Pt voiced understanding. Assessment & Plan (12/08/2020 9:10 PM STAKEHOLDER MANAGER): Mood has improved with increase in prozac. depakote make him more hyper/ agitated. Discontinue depakote (pt only took twice) and discontinue nortriptyline. Start seroquel xl 50mg at bedtime. He does have an initial appt with counseling at [facility]. Will have him f/u in 3 months or sooner if needed. Assessment & Plan (11/24/2020 7:58 PM STAKEHOLDER MANAGER): Will increase prozac to 60mg daily. I [...] Recommended counseling. [facility]. Pt voiced understanding. Assessment & Plan (09/22/2020 10:09 AM STAKEHOLDER MANAGER): Will increase prozac to 40mg daily. Add depakote 250mg at bedtime. Discussed SE's, risks/benefits of medication. Encouraged original referral to psychiatry. Will call psychiatry to help schedule appointment. Have him f/u in 2 weeks. Assessment & Plan (08/17/2020 8:19 AM STAKEHOLDER MANAGER): Improved with addition of fluoxetine 20 mg [...] effexor. Assessment & Plan (11/02/2019 8:43 PM STAKEHOLDER MANAGER): Discussed referral to counseling and pt was agreeable. Referred to psychiatry/ counseling. Discussed changing medication. D/c effexor. Decrease to 37.5mg x 1 week, then d/c. Start sertraline 50mg daily x 7 days, then increase to 100mg daily. buspar 7.5mg tid prn. Hypertension 05/20/2019 Assessment & Plan (10/29/2024 3:17 PM STAKEHOLDER MANAGER): BP Readings from Last 3 Encounters: 10/29/24 [...] The 2017 ACC/AHA guidelines, developed by the [place] [employer] and the [place] [employer], recommend a blood pressure target [...] time Assessment & Plan (09/13/2021 12:32 PM STAKEHOLDER MANAGER): Stable/ Improved. Blood pressure is adequately controlled [...] management Assessment & Plan (08/17/2020 8:20 AM STAKEHOLDER MANAGER): Hypertension much improved. Continue lisinopril 20 mg [...] 12/22/2021 Assessment & Plan (10/20/2021 1:32 PM STAKEHOLDER MANAGER): Drink small amounts of liquid, frequently. Advance diet as tolerated. Rx sent. COVID-19 virus detected 10/20/2021 0304/2022 Overview (10/20/2021): 09/29/2021 Assessment & Plan (10/20/2021 1:31 PM STAKEHOLDER MANAGER): Patient advised to go to nearest ER [...] counseling. Assessment & Plan (10/20/2021 1:32 PM STAKEHOLDER MANAGER): Weight reduction, daily exercise and dietary modifications recommended, when able. Assessment & Plan (10/17/2021 10:18 AM STAKEHOLDER MANAGER): BMI Follow-up includes: nutrition counseling and exercise [...] 04/02/2023 Assessment & Plan (11/24/2020 7:54 PM STAKEHOLDER MANAGER): Likely untreated. I have been trying to refer to psychiatry for some time. Called dr. José Manuel Werner's office and they require paper referral before they will make appt. Referral placed. I will put in epic reminder to make sure an actual appointment gets made. Assessment & Plan (01/06/2020 7:35 PM CDT): I checked their [place] PRODUCTION FLOATER sheet, and it was consistent with prescribed medications. Renewed medication. Can call monthly for refill Assessment & Plan (11/02/2019 8:39 PM STAKEHOLDER MANAGER): Discontinue methylphenidate 5mg. Start methylphenidate er 20mg once daily to be taken before his normal work day Encounters Date Type Department Care Team Description 06/25/2025 Orders Only [facility] at [place] [phone] Leandro Slater MD Left elbow pain (Primary Dx) 06/11/2025 3:45 PM CDT Office Visit [facility] at [address] [place] [phone] Leandro Slater MD Left elbow pain (Primary Dx); Type 2 diabetes mellitus with hyperglycemia, with long-term current use of insulin (HCC); Hemiparesis affecting left side as late effect of cerebrovascular accident (CVA) (HCC); Hyperlipidemia associated with type 2 diabetes mellitus (HCC) from Last 3 Months Immunizations Immunization Administration [...] more points, staff should administer the PHQ-9) 0 01/21/2025 PHQ-9 Answer Date Recorded PHQ-9 Total Score 17 10/29/2024 Personal Safety Answer Date Recorded Have you ever been in or are you currently in a harmful physical or emotional relationship or is someone making you feel afraid or unsafe? Denies 10/20/2024 Sex and Gender Information Value Date Recorded Sex Assigned at Not on file Legal Sex Male 11:09 AM STAKEHOLDER MANAGER Gender Identity Not on file Sexual Orientation Not on file Last Filed Vital Signs Vital Sign Reading Time Taken Comments Blood Pressure 134/78 06/11/2025 3:31 PM CDT Pulse 99 06/11/2025 3:31 PM CDT Temperature 36.3 C (97.3 F) 06/11/2025 3:31 PM CDT Respiratory Rate 16 06/11/2025 3:31 PM CDT Oxygen Saturation 97% 06/11/2025 3:31 PM CDT Inhaled Oxygen Concentration - - Weight 117 kg (258 lb) 06/11/2025 3:31 PM CDT Height 170.2 cm (5' 7) 06/11/2025 3:31 PM CDT Body Mass Index 40.41 06/11/2025 3:31 PM CDT Plan of Treatment Health Maintenance Due Date Last Done Comments Pneumococcal vaccine <65 (1 of 2 - PCV) 01/21/2008 HPV Vaccines (1 - 3-dose SCD M series) 01/21/2016 Influenza Vaccine (#1) 2025 12/19/2021, 2018 Albumin Creatinine Ratio, Urine 10/23/2025 10/23/2024, 07/10/2023, 03/26/2023 Dilated Eye Exam 10/23/2025 10/23/2024 Foot Exam 10/23/2025 10/23/2024, 03/08, 12/26/2021 Lipid Panel 10/29/2025 10/29/2024, 05/08, 03/26/2023, Additional history exists eGFR 10/29/2025 10/29/2024, 10/08, 07/10/2023, Additional history exists Hemoglobin A1C 12/09/2025 06/11/2025, 10/09, 10/23/2024, Additional history exists Depression Screening 01/21/2026 01/21/2025, 10/29/2024, 10/29/2024, Additional history exists Regular Well Visit/Exam 18-64 01/21/2026 01/21/2025, 04/02/2023 DTaP/Tdap/Td Vaccine (2 - Td or Tdap) 01/06/2031 01/06/2021 Hepatitis B Screening Completed 10/29/2024 Hepatitis C Screening Completed 10/29/2024 Varicella Vaccines Discontinued Procedures Procedure Name Priority Date/Time Associated Diagnosis Comments POCT HEMOGLOBIN A1C Routine 06/11/2025 4 :03 PM CDT Type 2 diabetes mellitus with hyperglycemia, with long-term current use of insulin (HCC) HEPATITIS C ANTIBODY Routine 10/29/2024 10:16 AM STAKEHOLDER MANAGER Encounter for hepatitis C screening test for low risk patient EGFR Routine 10/29/2024 10:16 AM STAKEHOLDER MANAGER Annual physical exam LIPID PANEL Routine 10/29/2024 10:16 AM STAKEHOLDER MANAGER Annual physical exam ALBUMIN CREATININE RATIO, URINE Routine 10/23/2024 11:54 AM STAKEHOLDER MANAGER Type 2 diabetes mellitus with hyperglycemia, with long-term current use of insulin (HCC) RETINAVUE SCANNER - OU - BOTH EYES Routine 10/23/2024 Type 2 diabetes mellitus with hyperglycemia, with long-term current use of insulin (HCC) from Last 3 Months or Most Recently Relevant to Health Maintenance Results * (ABNORMAL) POCT hemoglobin A1c (06/11/2025 4:03 PM CDT) Hemoglobin A1C, POC 7.1(A) 4.0 - 5.6 % Blood 06/11/2025 4:03 PM CDT us Leandro Slater MD POINT OF CARE TEST ORDER WEN Final Result * eGFR (10/29/2024 10:16 AM STAKEHOLDER MANAGER) eGFR >90 >=60 mL/min/1. 73 m2 Comment: [...] reviewed 2021. Blood 10/29/2024 10:1 6 AM STAKEHOLDER MANAGER 10/29/2024 8:17 PM STAKEHOLDER MANAGER Leandro Slater MD LAB BLOOD ORDERABLES Fin al Result Performing Organization Address [facility] de Phone Number RACHAEL [phone] [address] Department of [place] [phone] * Hepatitis C antibody Blood (10/29/2024 10:16 AM STAKEHOLDER MANAGER) Hep C Ab Nonreactive Nonreactive Comment: Interpretive [...] on 2019. Blood 10/29/2024 10:1 6 AM STAKEHOLDER MANAGER 10/29/2024 8:10 PM STAKEHOLDER MANAGER Leandro Slatre MD LAB MICROBIOLOGY - GENER AL ORDERABLES Final Result Performing Organization Address [facility] Co de Phone Number RACHAEL DIAZ [id number] [address] Department [place] [address] * (ABNORMAL) Lipid panel (10/29/2024 10:16 AM STAKEHOLDER MANAGER) Cholesterol 210(H) 30 - 199 mg/dL Comment: [...] on 2018. HDL 35(L) >=40 mg/dL RACHAEL Comment: Interpretive Data Ages < or = [...] RACHAEL DIAZ Blood 10/29/2024 10:1 6 AM STAKEHOLDER MANAGER 10/29/2024 8:10 PM STAKEHOLDER MANAGER us Leandro Slater MD LAB BLOOD ORDERABLES Fin al Result RACHAEL DIAZ [id number] [address] Department [place] [address] * Albumin Creatinine Ratio, Urine (10/23/2024 11:54 AM STAKEHOLDER MANAGER) Albumin Ur <12.0 mg/L Comment: Interpretive Data No reference range established. Current interpretive data was last revised 2019. Creatinine Ur 44.1 mg/dL [facility] Comment: Interpretive Data No reference range established. Current interpretive data was last revised 2019. Albumin Creatinine Ratio, Ur <27 1 - 29 mg/g RACHAEL Urine 10/23/2024 11:5 4 AM STAKEHOLDER MANAGER 10/23/2024 6:22 PM STAKEHOLDER MANAGER Fabian Alvarado DO LAB URINE ORDERABLES Final Result RACHAEL [address] [address] Department [place] [address] * RetinaVue Scanner - OU - Both Eyes (10/23/2024) Anatomical Region Laterality Modality Head Fundus Photograp hy 10/23/2024 Fabian Alvarado DO OPHTH PHOTOGRAPHY Edited Re sult - Final from Last 3 Months or Most Recently Relevant to Health Maintenance Insurance [facility] Member Subscriber Plan / Payer (Ef fective 2019-Present) Name:José Manuel Hilario Relation to Subscriber:Self Name:José Manuel Hilario Payer ID:[id number] (NAIC) Type: [facility] Address: [facility] [id number] [address] BLUE ACCESS OOS AETNA COVENTRY HMO/POS AETNA COVENTRY HMO/POS TRAVELERS INSURANCE Care Teams Lifeline Representatives Relationship Specialty Start Date End Date Leandro Slater MD [address] [facility] [address] [place] [address] PCP - General Family Medicine 10/29/24 José Manuel Werner MD Referring Physician Psychiatry 12/02/21
--- NOTE | 2025-08-28 12:08 | ED.URI ---
HPI - URI/Sore Throat General Chief Complaint: Upper Respiratory Infection Stated Complaint: throat/ears Time Seen by Provider: 08/28/25 12:12 Source: patient and RN notes reviewed Mode of arrival: ambulatory Limitations: no limitations History of Present Illness HPI Narrative: 35-year-old male presents with concern for sore throat, bilateral ear pain and cough. Reports 4 days of symptoms. His children have bronchitis. He has been using cough drops without relief. MD elicited complaint: sore throat Related Data Home Medications ?Medication ?Instructions ?Recorded ?Confirmed ?Last Taken ?Type lisinopril 5 mg tablet 5 mg PO DAILY 08/08/23 03/18/24 Unknown History aspirin 81 mg tablet,delayed mg 12/12/24 Unknown History release lisinopril 20 mg tablet mg 08/28/25 Unknown History metformin 500 mg tablet,extended mg PO 08/28/25 Unknown History release 24 hr Allergies Allergy/AdvReac Type Severity Reaction Status Date / Time No Known Allergies Allergy Unknown Verified 08/28/25 11:53 Review of Systems Review of Systems: CONSTITUTIONAL: Denies malaise, chills, sweats, or fever. EYES: Denies visual changes, redness, or discharge. ENT: Reports rhinorrhea, congestion, otalgia and sore throat. CARDIOVASCULAR: Denies chest pain, palpitations, or edema. RESPIRATORY: Reports cough. Denies dyspnea. GASTROINTESTINAL: Denies abdominal pain, nausea, vomiting, diarrhea SKIN: Denies rash or itching. MUSCULOSKELETAL: Denies myalgia. NEUROLOGIC: Denies headache. All systems reviewed & are unremarkable except as noted in HPI and below PMFSH Past Medical History Medical History Diabetes Diarrhea Hypertension No pertinent past medical history Surgical History Surgical History No pertinent past surgical history Family History Family History Mother Family history non-contributory Social History Social History Living arrangements: with family Gender identity (if verbalized by the patient): Male Comments At time of signature, agree with nursing past medical, surgical, social and family history. There is no relevant family history pertinent to the presenting complaint Exam Narrative: GENERAL: Well-appearing, well-nourished, and in no acute distress. HEAD: Normocephalic EYES: PERRLA, conjunctivae clear ENT: Nares clear, turbinates edematous and erythematous, clear discharge. Mucous membranes moist. TM pearly giles with dull light reflex bilaterally; no tragal tenderness. Oropharynx not erythematous without lesions. Tonsils not enlarged and without exudate, no drooling, no hoarseness, no trismus, uvula midline. NECK: Supple. No lymphadenopathy CHEST: Clear to auscultation, breath sounds equal. No wheezing, rhonchi, rales, or stridor. No respiratory distress, speaks in full sentences. HEART: Regular rate and rhythm. No murmur heard. SKIN: Warm, dry, no rash. NEURO: Alert and oriented x3. PSYCH: Normal mood and affect Course Course Emergency Course: Patient is aware of diagnosis, understands and agrees to treatment plan. Anticipatory guidance given. Patient agrees to follow-up as directed and is aware of reasons to seek care at the emergency department. Portions of this record may have been created with voice recognition software Level of Care: Express Care Visit Vital Signs Vital signs: Vital Signs Temperature 97.4 F L 08/28/25 11:52 Pulse Rate 89 08/28/25 11:52 Respiratory Rate 20 08/28/25 11:52 Blood Pressure 133/86 08/28/25 11:52 Pulse Oximetry 99 08/28/25 11:52 Oxygen Delivery Room Air 08/28/25 11:52 Temperature 97.4 F L 08/28/25 11:52 Pulse Rate 89 08/28/25 11:52 Respiratory Rate 20 08/28/25 11:52 Blood Pressure 133/86 08/28/25 11:52 Pulse Oximetry 99 08/28/25 11:52 Oxygen Delivery Room Air 08/28/25 11:52 Reviewed. MDM - URI/Sore Throat MDM Narrative Medical decision making narrative: Differential diagnosis considered: Garcia virus, strep pharyngitis, allergic rhinitis, upper respiratory tract infection, sinusitis, rhinosinusitis, nasopharyngitis. viral pharyngitis, otitis media, otitis externa, pneumonia, bronchitis, viral cough syndrome, viral syndrome, and influenza. Exam findings show no acute concerns or changes; patient is non-toxic appearing and is in no distress. Patient is appropriate for outpatient treatment and follow-up. Lab Data Attestation: I reviewed the patient's lab results. Critical Care Time Critical Care Time Critical Care Time: No Discharge Plan Discharge Clinical Impression: Upper respiratory infection Patient Disposition: Home Condition: Stable Instructions: Upper Respiratory Infection (ED) Additional Instructions: Viral illness may last between 7-21 days; antibiotics do not cure viral illness and are NOT recommended at this time. Recommend antihistamine such as Benadryl at night time and Zyrtec or Ethel during the day Take cough medicine as prescribed Also, recommend symptomatic treatment includes: rest, fluids, and increase humidity of the air at home. Recommend Acetaminophen as directed on the bottle to reduce fever, pain, headache. Avoid smoking/second-hand smoke. Please schedule a follow-up visit with your personal physician for further evaluation and treatment within 3-5days. If your symptoms persist, change or worsen significantly before you can contact your personal physician then please, without delay, go to the emergency department for further evaluation. Patient Language: Korean Prescriptions: New dextromethorphan-guaifenesin [Mucinex DM] 60-1,200 mg tablet extended release 12 hr 1 tablet PO Q12H Qty: 12 0RF methylprednisolone [Medrol (Yahir)] 4 mg tablets,dose pack See Rx Instructions .ROUTE .COMPLEX Qty: 21 0RF Rx Instructions: orally per package directions No Action aspirin 81 mg tablet,delayed release (DR/EC) lisinopril 20 mg tablet metformin 500 mg tablet extended release 24 hr PO lisinopril 5 mg tablet 5 mg PO DAILY Follow-up/Referrals: Bryon,Leandro Mejía MD [Primary Care Provider, Unknown] Stand Alone Forms: Work/School Release IP Time of Disposition: 12:18
[2025-08-31 11:47] LABS: EDSTREPNEGPOS1 Negative (Negative)
== END 2025-08-28 12:23 | disposition home or self-care (01) ==
PROVIDERS: Emergency Provider Nurse Practitioner; PCP Family Medicine
DX: J06.9 Acute upper respiratory infection, unspecified (principal); E11.9 Type 2 diabetes mellitus without complications; Z79.84 Long term (current) use of oral hypoglycemic drugs; I10 Essential (primary) hypertension; Z79.82 Long term (current) use of aspirin
CPT/HCPCS: 87081; 87880; 99213; G0463